=== PATIENT | male | born 1965 | race Caucasian/White ===

== ENCOUNTER 2021-02-19 12:58 | Inpatient (IN) ==
[2021-02-19] MEDS ORDERED: ONDANSETRON INJ 2 MG/ML 2 ML VIAL IV STA (14:20)
[2021-02-19] MEDS ORDERED: SODIUM CHLORIDE 0.9% 1000ML 1,000 ML IV ONE (14:20)
[2021-02-19] MEDS ORDERED: KETOROLAC TROMETHAMINE 15 MG/ML VIAL IV STA (14:20)
[2021-02-19 14:39] LABS: Appearance Urine Clear (Clear); Bilirubin Urine Negative (Negative); Blood Urine Negative (Negative); Color Urine Yellow; Glucose Urine UA Negative (Negative); Ketones Urine Trace (Negative); Leukocyte Esterase Urine Negative (Negative); Nitrite Urine Negative (Negative); Protein Urine Negative (Negative); Specific Gravity Urine 1.022 (1.000-1.030); Urobilinogen Urine Negative (Negative); pH Urine 6.5 (4.5-7.5)
[2021-02-19 14:50] LABS: Basophils # (auto) 0.01 K/uL (0-0.2); Basophils % (auto) 0.1 %; Eosinophils # (auto) 0.12 K/uL (0-0.5); Eosinophils % (auto) 1.3 %; Hematocrit (blood only) 42.5 % (42-52); Hemoglobin 14.3 g/dL (14.0-18.0); Immature Granulocytes # (auto) 0.02 K/uL (0.00-0.02); Immature Granulocytes % (auto) 0.2 %; Lymphocytes # (auto) 0.87 K/uL (1.2-3.4); Lymphocytes % (auto) 9.2 %; Mean Corpuscular Hemoglobin 31.1 pg (25-34); Mean Corpuscular Hgb Conc 33.6 g/dL (32-36); Mean Corpuscular Volume 92.4 fL (80-100); Mean Platelet Volume 9.3 fL (7.4-10.4); Monocytes # (auto) 0.91 K/uL (0.11-0.59); Monocytes % (auto) 9.7 %; Neutrophils # (auto) 7.49 K/uL (1.4-6.5); Neutrophils % (auto) 79.5 %; Platelet Count 283 K/uL (130-400); RDW Coefficient of Variation 13.3 % (11.5-14.5); RDW Standard Deviation 45.3 fL (36.4-46.3); White Blood Count 9.42 K/uL (4.8-10.8)
[2021-02-19 14:59] LABS: BUN Creatinine Ratio 16.4 (10-20); Calcium 8.9 mg/dl (8.5-10.1); Creatinine Clr Calc Pharmacy 75.4 ml/min; Est GFR (African American) 77.1 ml/min; Est GFR (Non-African American) 66.5 ml/min; Potassium 4.4 mmol/L (3.5-5.1)
--- NOTE | 2021-02-19 17:30 | History & Physical Report ---
Date of Service February 19, 2021 Assessment & Plan (1) 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: (2) Ureterolithiasis: Plan: This is a 55yo M with a PMH of HTN, dyslipidemia, depression GERD, tobacco use who presents with continued renal colic. Initially came to ED [address] abd/pelvis from 02/16/21 with mild hydronephrosis and hydroureter is seen on the right with obstructive 6 mm calculus within proximal aspect of the right ureter Discharge home, has not passed on its own, returns with continued pain UA unremarkable Repeat CT abd/pelvis Urology consult IV fluids, pain control, antiemetics, flomax (3) Acute kidney injury: Plan: Cr elevated to 1.21 (0.90 4 days ago) 2/2 ureterolithiasis with hydro Hold lisinopril, continue IV fluids, urology on board (4) HTN (hypertension): Plan: Hold lisinopril (5) BPH (benign prostatic hyperplasia): Plan: Follows with Dr. Helms. Continue alfuzosin (6) Depression: Plan: Continue venlafaxine (7) Tobacco use: Plan: Cessation recommended DVT Ppx:SCDs in setting of possible intervention Code status: FULL PCP: Ktah Dispo: Admitted to med/surg Patient seen in collaboration with Dr. Mueller. Please see addendum. History of Present Illness Primary Care Provider: Mary Stockton DO This is a 55yo M with a PMH of HTN, dyslipidemia, depression GERD, tobacco use who presents with continued renal colic. Initially came to ED [address] abd/pelvis from 02/16/21 with mild hydronephrosis and hydroureter is seen on the right with obstructive 6 mm calculus within proximal aspect of the right ureter, asymmetrical stranding of the right perinephric fat and delayed right nephrogram. Was discharged home with hope that he would pass stone but has continued to have persistent pain. Pain is described as colicky and intermittent, located right suprapubic area wrapping around to R flank and back. Endorses nausea but no vomiting. Has some burning with urination. No fever or chills. No lightheadedness, headache, chest pain, SOB, appetite changes, hematuria or diarrhea. Has been using oxycodone, Zofran and Flomax since discharge 4 days ago. Has not had a bowel movement since Saturday. Follows with Dr. Bernal for history of BPH. Allergies Allergy/AdvReac Type Severity Reaction Status Date / Time No Known Allergies Allergy Mild Unverified 02/16/21 00:27 Home Medications Medication Instructions Recorded Confirmed Type alfuzosin 10 mg tablet,extended 10 mg PO DAILY 02/16/21 02/19/21 History release 24 hr atorvastatin 20 mg tablet 20 mg PO HS 02/16/21 02/19/21 History fluticasone propionate 50 1 spray INTRANASAL DAILY 02/16/21 02/19/21 History mcg/actuation nasal spray,suspension lisinopril 30 mg tablet 30 mg PO QAM 02/16/21 02/19/21 History omeprazole 20 mg capsule,delayed 20 mg PO DAILY 02/16/21 02/19/21 History release ondansetron 4 mg disintegrating 4 mg PO Q6H PRN #14 tab 02/16/21 02/19/21 Rx tablet oxycodone 5 mg tablet 5 mg PO Q4H #15 tab 02/16/21 02/19/21 Rx venlafaxine 37.5 mg 75 mg PO QAM 02/16/21 02/19/21 History capsule,extended release 24 hr acetaminophen 325 mg tablet 650 mg PO QID PRN 02/19/21 02/19/21 History tamsulosin 0.4 mg capsule 0.4 mg PO QAM 02/19/21 02/19/21 History Past Med/Surg History Medical History BPH (benign prostatic hyperplasia) Depression Esophageal reflux (08/24/12) HTN (hypertension) Tobacco use Surgical History History of appendectomy History of colonoscopy Family History Other Heart disease Social History Smoking Status: Current every day smoker Tobacco Type: Smokeless Tobacco (Dip or Chew) Hx Alcohol Use: Yes Alcohol Intake Frequency: Monthly or Less Hx Substance Use: No Preferred Language: Romanian Feels Safe at Home: Yes Review of Systems Review of Systems: At least ten systems reviewed and negative except as noted in the HPI. Physical Exam Physical Exam: Please see Dr. Mueller's addendum for physical exam. Results & Data Results & Data ([facility]) Vital Signs (Past 12 Hours) Vital Signs Temp Pulse Pulse Resp BP Pulse Ox 02/19/21 15:30 51 L 17 139/85 96 02/19/21 15:15 54 L 18 152/90 H 96 02/19/21 15:00 62 15 139/91 95 02/19/21 14:21 54 L 18 97 02/19/21 14:20 52 L 17 99 02/19/21 13:45 36.8 C 61 18 166/91 H 94 Laboratory Results Short CBC 02/19/21 02/19/21 Range/Units 14:25 14:25 WBC 9.42 (4.8-10.8) K/uL Hgb 14.3 (14.0-18.0) g/dL Hct 42.5 (42-52) % Plt Count 283 (130-400) K/uL Creatinine 1.21 (0.6-1.4) mg/dl BMP 02/19/21 14:25 Sodium 136 Potassium 4.4 Chloride 101 Carbon Dioxide 29 BUN 20 H Creatinine 1.21 Glucose 89 Calcium 8.9 Urine 02/19/21 Range/Units 14:25 Urine Color Yellow Urine Appearance Clear (Clear) Urine pH 6.5 (4.5-7.5) Ur Specific [place] 1.022 (1.000-1.030) Urine Protein Negative (Negative) Urine Glucose (UA) Negative (Negative) Supervising Physician Co-Signing Physician Notes 55 male with PMH of HTN, HLD, depression, GERD, tobacco use presents with continued renal colic 02/19. Initially he presented to our ED [address] scan at that time revealed mild hydronephrosis and hydroureter on the right with 6 mm obstructing calculus; at which time patient decided to go home to let the stone pass on its own. But the pain did not resolve and patient is back. Continue pain management, nausea control, n.p.o. after midnight, urology consult, tamsulosin. Patient also complains of constipation, use laxatives and stool softener. Upon examination: GENERAL: Alert and oriented x3. NAD, on RA. HEENT: No pallor, no icterus. Pupils equal, round and reactive to light. Oral mucosa moist. NECK: No JVD, no neck masses. HEART: S1 and S2 heard. Regular rate and rhythm. No murmur, no gallop. RESPIRATORY SYSTEM: Normal AP diameter. No accessory muscle use. No wheezing, no crackles. ABDOMEN: Soft, bowel sounds present, nontender, no distention. CENTRAL NERVOUS SYSTEM: Alert and oriented x3. No facial droop. Speech is clear. Obeys simple commands. Moves extremities. EXTREMITIES: No edema, no erythema seen. I have seen and examined the patient and have discussed the case with the provider above. I agree with the assessment and plan as stated.
[2021-02-19] MEDS ORDERED: KETOROLAC TROMETHAMINE 15 MG/ML VIAL IV PRN (18:50)
--- NOTE | 2021-02-19 19:57 | XRay Report ---
KUB CLINICAL HISTORY: Right ureteral stone. FINDINGS: 2 AP supine abdominal radiographs are correlated with abdominal CT dated 02/16/2021. There i s a nonobstructed abdominal bowel gas pattern noting moderate colonic fecal retention. This largely o bscures the right renal shadow. A punctate nonobstructing calculus projects over the interpolar left kidney. No definite calcifications are seen projecting over the right kidney or along the course of u reters. Calcifications in the right hemipelvis likely represent phleboliths. The bony structures appe ar intact. IMPRESSION: 1. A punctate nonobstructing calculus projects over the interpolar left kidney. 2. The patient's right ureteral stone is not definitively visualized. The right renal shadow is large ly obscured by colonic contents. 3. Right pelvic basin calcifications likely represent phleboliths, although 1 of these representing a distal right ureteral stone is not entirely excluded. Electronically signed by: Johnny Winters M.D. 02/19/2021 7:55 PM
[2021-02-19] MEDS ORDERED: DOCUSATE SODIUM 100 MG CAP PO ONE (19:59)
[2021-02-19] MEDS ORDERED: DOCUSATE SODIUM 100 MG CAP PO PRN (19:59)
[2021-02-19] MEDS ORDERED: POLYETHYLENE (MIRALAX) 17 GM PACK PO ONE (19:59)
[2021-02-19] MEDS ORDERED: oxyCODONE HCL IR 5 MG TAB (IMMEDIATE RELEASE) PO PRN (19:59)
[2021-02-19] MEDS: SODIUM CHLORIDE 0.9% 1000ML 1,000 ML IV SCH (20:28)
[2021-02-19] MEDS: ATORVASTATIN 20 MG TAB PO SCH (20:51)
[2021-02-19] MEDS: VENLAFAXINE HCL XR 75 MG CAPXR PO SCH (20:52)
--- NOTE | 2021-02-19 21:59 | Emergency Department Note ---
History of Present Illness General Chief Complaint: Flank Pain Stated Complaint: FLANK PAIN Time Seen by Provider: 02/19/21 14:19 History of Present Illness Provider Complaint: flank pain Onset (ago): 4 day(s) Pain Consistency: constant Location: R flank Radiation: RLQ Severity: severe Maximum Pain Intensity: 10 Current Pain Intensity: 5 Quality: + stabbing Relieved By: + nothing Exacerbated By: + nothing Context: + history of similar episodes (Recently diagnosed with kidney stones) Associated Symptoms: + chills; no nausea, no vomiting, no diarrhea, no fever, no constipation, no dysuria, no hematemesis, no hematochezia, no melena, no hematuria, no anorexia, no syncope, no headache, no neck pain, no back pain, no chest pain, no weakness and no numbness Home Medications Medication Instructions Recorded Confirmed Type alfuzosin 10 mg tablet,extended 10 mg PO DAILY 02/16/21 02/19/21 History release 24 hr atorvastatin 20 mg tablet 20 mg PO HS 02/16/21 02/19/21 History fluticasone propionate 50 1 spray INTRANASAL DAILY 02/16/21 02/19/21 History mcg/actuation nasal spray,suspension lisinopril 30 mg tablet 30 mg PO QA 02/16/21 02/19/21 History omeprazole 20 mg capsule,delayed 20 mg PO DAILY 02/16/21 02/19/21 History release ondansetron 4 mg disintegrating 4 mg PO Q6H PRN #14 tab 02/16/21 02/19/21 Rx tablet venlafaxine 37.5 mg 75 mg PO QA 02/16/21 02/19/21 History capsule,extended release 24 hr acetaminophen 325 mg tablet 650 mg PO QID PRN 02/19/21 02/19/21 History oxycodone 5 mg tablet 5 mg PO Q4H PRN 02/19/21 02/19/21 History tamsulosin 0.4 mg capsule 0.4 mg PO QAM 02/19/21 02/19/21 History Allergies Allergy/AdvReac Type Severity Reaction Status Date / Time No Known Allergies Allergy Mild Unverified 02/16/21 00:27 Past Med/Surg History Medical History BPH (benign prostatic hyperplasia) Depression Esophageal reflux (08/24/12) HTN (hypertension) Tobacco use Surgical History History of appendectomy History of colonoscopy Family History Other Heart disease Social History Smoking Status: Current every day smoker Tobacco Type: Smokeless Tobacco (Dip or Chew) Hx Alcohol Use: Yes Alcohol Intake Frequency: Monthly or Less Hx Substance Use: No Preferred Language: Nepali Feels Safe at Home: Yes Review of Systems A total of 10 systems reviewed and were otherwise negative Physical Exam Vital Signs: Vital Signs - 24 hr 02/19/21 13:45 02/19/21 14:20 02/19/21 14:21 Temperature 36.8 C Temperature Source Temporal Artery Sc an Pulse Rate 61 52 L Pulse Rate [Left] 54 L Pulse Rate from Sp O2 Sensor Pulse Rhythm Regular Pulse Rhythm [Left ] Regular Pulse Strength [Le ft] Normal Respiratory Rate 18 17 18 Respiratory Effort / Characteristics Non-Labored Sponta neous Non-Labored Respiratory Depth Normal Normal Respiratory Patter n Regular Regular Blood Pressure 166/91 H Blood Pressure Laya n 116 Blood Pressure Pos ition Sitting Pulse Oximetry 94 99 97 Oxygen Delivery Me thod Room Air Room Air Room Air Sepsis Recent Feve r Within 48 Hours No Sepsis New/Unexpla ined Change in Men [place] Status N/A Sepsis Action Take n by Nursing No Action Required 02/19/21 15:00 02/19/21 15:15 02/19/21 15:30 Temperature Temperature Source Pulse Rate 62 54 L 51 L Pulse Rate [Left] Pulse Rate from Sp O2 Sensor 60 55 L 50 L Pulse Rhythm Pulse Rhythm [Left ] Pulse Strength [Le ft] Respiratory Rate 15 18 17 Respiratory Effort / Characteristics Respiratory Depth Respiratory Patter n Blood Pressure 139/91 152/90 H 139/85 Blood Pressure Laya n 107 110 103 Blood Pressure Pos ition Pulse Oximetry 95 96 96 Oxygen Delivery Me thod Room Air Room Air Room Air Sepsis Recent Feve r Within 48 Hours Sepsis New/Unexpla ined Change in Men [place] Status Sepsis Action Take n by Nursing 02/19/21 15:45 02/19/21 16:00 02/19/21 16:15 Temperature Temperature Source Pulse Rate 51 L 52 L 54 L Pulse Rate [Left] Pulse Rate from Sp O2 Sensor 50 L 51 L 53 L Pulse Rhythm Pulse Rhythm [Left ] Pulse Strength [Le ft] Respiratory Rate 14 15 17 Respiratory Effort / Characteristics Respiratory Depth Respiratory Patter n Blood Pressure 151/87 H 142/90 H 155/96 H Blood Pressure Laya n 108 107 115 Blood Pressure Pos ition Pulse Oximetry 96 94 95 Oxygen Delivery Me thod Sepsis Recent Feve r Within 48 Hours Sepsis New/Unexpla ined Change in Men aur[place] Status Sepsis Action Take n by Nursing 02/19/21 16:30 02/19/21 17:00 Temperature Temperature Source Pulse Rate 54 L 52 L Pulse Rate [Left] Pulse Rate from Sp O2 Sensor 54 L 52 L Pulse Rhythm Pulse Rhythm [Left ] Pulse Strength [Le ft] Respiratory Rate 22 17 Respiratory Effort / Characteristics Respiratory Depth Respiratory Patter n Blood Pressure 157/92 H 139/85 Blood Pressure Laya n 113 103 Blood Pressure Pos ition Pulse Oximetry 96 95 Oxygen Delivery Me thod Sepsis Recent Feve r Within 48 Hours Sepsis New/Unexpla ined Change in Men [place] Status Sepsis Action Take n by Nursing Physical Exam: Physical Exam GENERAL: He is oriented to person, place, and time. He appears well-developed and well-nourished. He does not appear distressed. HENT: Exam performed. - Head: Normocephalic and atraumatic. - Right Ear: External ear normal. No mastoid tenderness. - Left Ear: External ear normal. No mastoid tenderness. - Mouth/Throat: The oropharynx is clear and moist. No trismus in the jaw. No dental abscesses or uvula swelling. No oropharyngeal exudate or tonsillar absces ses. EYES: Conjunctivae and EOM are normal. Pupils are equal, round, and reactive to light. Right eye exhibits no discharge. Left eye exhibits no discharge. No scleral icterus. NECK: Normal range of motion. Neck supple. No JVD present. No spinous process tenderness present. No carotid bruit present. No rigidity. No tracheal deviation and normal range of motion present. No Brudzinski's sign and no Kernig's sign noted. CV: Normal rate, regular rhythm, normal heart sounds and intact distal pulses. There is no peripheral edema. Palpable radial pulses bue. PULM/CHEST: Effort normal and breath sounds normal. No respiratory distress. No stridor. He has no wheezes. He has no rales. - Chest Wall: He exhibits no tenderness. ABD: The abdomen is soft. Bowel sounds are normal. He has no distension. No mass is present. There is no tenderness. There is no rebound, no guarding, no Conner's sign and no tenderness at McBurney's point. Rovsig negative. Right- sided CVA tenderness. MUSC/SKEL: Normal range of motion. There is no peripheral edema, tenderness or deformity. LYMPH: No cervical adenopathy. NEURO: He is alert and oriented to person, place, and time. He has normal strength. No cranial nerve deficit or sensory deficit. Coordination and gait normal. GCS eye subscore is 4. GCS verbal subscore is 5. GCS motor subscore is 6. Cerebellar tests wnl. SKIN: Skin is warm and dry. He is not diaphoretic. PSYCH: He has a normal mood and affect. Behavior is normal. Judgment and thought content normal. Course Course 141: The patient was evaluated in room C12. A complete history and physical exam was performed Cardiac monitoring: An order was placed for continuous cardiac monitoring. The monitor shows a rate of 70 with sinus rhythm EMR reviewed. Patient was seen in the emergency department on February 15. At that time he was diagnosed with a 6 mm kidney stone. Patient was discharged with analgesia. 1730:Vital signs stable. Labs within normal limits. Patient be admitted to the [facility] medical team for pain control and urology evaluation. With Joaquina Guerrero who stated to admit to Dr. Mueller Administered Medications Atorvastatin Calcium (Atorvastatin 20 Mg Tab) 20 mg PO HS TIKI Stop: 03/21/21 20:59 Last Admin: 02/19/21 20:51 Dose: 20 mg Documented by: [id number] Sodium Chloride (Nss 1000ml) 1,000 mls @ 125 mls/hr IV .Q8H TIKI Stop: 03/21/21 19:58 Last Admin: 02/19/21 20:28 Dose: 125 mls/hr Documented by: [id number] Ketorolac Tromethamine (Ketorolac Tromethamine 15 Mg/Ml Vial) 15 mg IV Q6H PRN PRN Reason: Pain Stop: 02/20/21 00:01 Last Admin: 02/19/21 20:51 Dose: 15 mg Documented by: [id number] Venlafaxine HCl (Venlafaxine Hcl Xr 75 Mg Capxr) 75 mg PO QAM TIKI Stop: 03/22/21 08:59 Last Admin: 02/19/21 20:52 Dose: 75 mg Documented by: [id number] Discontinued Medications Docusate Sodium (Docusate Sodium 100 Mg Cap) 100 mg PO NOW ONE Stop: 02/19/21 20:00 Last Admin: 02/19/21 20:51 Dose: 100 mg Documented by: [id number] Sodium Chloride (Nss 1000ml) 1,000 mls @ 999 mls/hr IV .Q1H1M ONE Stop: 02/19/21 15:20 Last Infusion: 02/19/21 16:07 Dose: 0 mls/hr Documented by: [id number] Admin: 02/19/21 14:55 Dose: 999 mls/hr Documented by: [id number] Ketorolac Tromethamine (Ketorolac Tromethamine 15 Mg/Ml Vial) 15 mg IV NOW STA Stop: 02/19/21 14:21 Last Admin: 02/19/21 14:51 Dose: 15 mg Documented by: [id number] Ondansetron HCl (Ondansetron Inj 2 Mg/Ml 2 Ml Vial) 4 mg IV NOW STA Stop: 02/19/21 14:21 Last Admin: 02/19/21 14:51 Dose: 4 mg Documented by: [id number] Polyethylene Glycol (Polyethylene (Miralax) 17 Gm Pack) 17 gm PO ONE ONE Stop: 02/19/21 20:00 Last Admin: 02/19/21 20:52 Dose: 17 gm Documented by: [id number] Medical Decision Making Laboratory Data Result diagrams: 02/19/21 14:25 02/19/21 14:25 Lab Results 02/19/21 02/19/21 02/19/21 Range/Units 14:25 14:25 14:25 WBC 9.42 (4.8-10.8) K/uL RBC 4.60 L (4.7-6.1) M/uL Hgb 14.3 (14.0-18.0) g/dL Hct 42.5 (42-52) % MCV 92.4 (80-100) fL MCH 31.1 (25-34) pg MCHC 33.6 (32-36) g/dL RDW Std Deviation 45.3 (36.4-46.3) fL RDW Coeff of [place] 13.3 (11.5-14.5) % Plt Count 283 (130-400) K/uL MPV 9.3 (7.4-10.4) fL Immature Gran % (Auto) 0.2 % Neut % (Auto) 79.5 % Lymph % (Auto) 9.2 % [place] % (Auto) 9.7 % Eos % (Auto) 1.3 % Baso % (Auto) 0.1 % Neut # (Auto) 7.49 H (1.4-6.5) K/uL Lymph # (Auto) 0.87 L (1.2-3.4) K/uL [place] # (Auto) 0.91 H (0.11-0.59) K/uL Eos # (Auto) 0.12 (0-0.5) K/uL Baso # (Auto) 0.01 (0-0.2) K/uL Immature Gran # (Auto) 0.02 (0.00-0.02) K/uL Sodium 136 (136-145) mmol/L Potassium 4.4 (3.5-5.1) mmol/L Chloride 101 (98-107) mmol/L Carbon Dioxide 29 (21-32) mmol/L Anion Gap 6.0 (3-11) BUN 20 H (7-18) mg/dl Creatinine 1.21 (0.6-1.4) mg/dl Est Cr Clr Drug Dosing 75.4 ml/min Est GFR ( Amer) 77.1 ml/min Est GFR (Non-Af Amer) 66.5 ml/min BUN/Creatinine Ratio 16.4 (10-20) Glucose 89 (70-99) mg/dl Lactate (0.4-2.0) mmol/L Calcium 8.9 (8.5-10.1) mg/dl Urine Color Yellow Urine Appearance Clear (Clear) Urine pH 6.5 (4.5-7.5) Ur Specific [place] 1.022 (1.000-1.030) Urine Protein Negative (Negative) Urine Glucose (UA) Negative (Negative) Urine Ketones Trace H (Negative) Urine Blood Negative (Negative) Urine Nitrite Negative (Negative) Urine Bilirubin Negative (Negative) Urine Urobilinogen Negative (Negative) Ur Leukocyte Esterase Negative (Negative) COVID-19 Eval Order SARS-CoV-2 (PCR) (Negative) 09/26/21 09/26/21 09/26/21 Range/Units 14:30 14:55 14:55 WBC (4.8-10.8) K/uL RBC (4.7-6.1) M/uL Hgb (14.0-18.0) g/dL Hct (42-52) % MCV (80-100) fL MCH (25-34) pg MCHC (32-36) g/dL RDW Std Deviation (36.4-46.3) fL RDW Coeff of [place] (11.5-14.5) % Plt Count (130-400) K/uL MPV (7.4-10.4) fL Immature Gran % (Auto) % Neut % (Auto) % Lymph % (Auto) % [place] % (Auto) % Eos % (Auto) % Baso % (Auto) % Neut # (Auto) (1.4-6.5) K/uL Lymph # (Auto) (1.2-3.4) K/uL [place] # (Auto) (0.11-0.59) K/uL Eos # (Auto) (0-0.5) K/uL Baso # (Auto) (0-0.2) K/uL Immature Gran # (Auto) (0.00-0.02) K/uL Sodium (136-145) mmol/L Potassium (3.5-5.1) mmol/L Chloride (98-107) mmol/L Carbon Dioxide (21-32) mmol/L Anion Gap (3-11) BUN (7-18) mg/dl Creatinine (0.6-1.4) mg/dl Est Cr Clr Drug Dosing ml/min Est GFR ( Amer) ml/min Est GFR (Non-Af Amer) ml/min BUN/Creatinine Ratio (10-20) Glucose (70-99) mg/dl Lactate 0.8 (0.4-2.0) mmol/L Calcium (8.5-10.1) mg/dl Urine Color Urine Appearance (Clear) Urine pH (4.5-7.5) Ur Specific [place] (1.000-1.030) Urine Protein (Negative) Urine Glucose (UA) (Negative) Urine Ketones (Negative) Urine Blood (Negative) Urine Nitrite (Negative) Urine Bilirubin (Negative) Urine Urobilinogen (Negative) Ur Leukocyte Esterase (Negative) COVID-19 Eval Order Covid19 at [facility] SARS-CoV-2 (PCR) NEGATIVE (Negative) MDM Narrative 1419: The patient was evaluated in room C12. A complete history and physical exam was performed Cardiac monitoring: An order was placed for continuous cardiac monitoring. The monitor shows a rate of 70 with sinus rhythm EMR reviewed. Patient was seen in the emergency department on February 15, 2021. At that time he was diagnosed with a 6 mm kidney stone. Patient was discharged with analgesia. 1730:Vital signs stable. Labs within normal limits. Patient be admitted to the [facility] medical team for pain control and urology evaluation. With Joaquina Guerrero who stated to admit to Dr. Mueller Impression & Plan 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 Discharge Plan Visit Data Chief Complaint: Flank Pain Stated Complaint: FLANK PAIN Discharge Problem: 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 Patient Disposition: Admitted As Inpatient Discharge Instructions Interventions: ED Discharge Assessment Last Done: 02/19/21 19:28
[2021-02-20] MEDS: SODIUM CHLORIDE 0.9% 1000ML 1,000 ML IV SCH ×3 (04:09→20:03)
[2021-02-20 07:52] LABS: Hematocrit (blood only) 37.4 % (42-52); Hemoglobin 12.3 g/dL (14.0-18.0); Mean Corpuscular Hemoglobin 30.5 pg (25-34); Mean Corpuscular Hgb Conc 32.9 g/dL (32-36); Mean Corpuscular Volume 92.8 fL (80-100); Mean Platelet Volume 9.6 fL (7.4-10.4); Platelet Count 257 K/uL (130-400); RDW Coefficient of Variation 13.2 % (11.5-14.5); RDW Standard Deviation 45.2 fL (36.4-46.3); Red Blood Count 4.03 M/uL (4.7-6.1); White Blood Count 5.62 K/uL (4.8-10.8)
[2021-02-20] MEDS: ALFUZOSIN HCL 10 MG TAB PO SCH ×2 (08:09→08:13)
[2021-02-20] MEDS: TAMSULOSIN HCL 0.4 MG CAP PO SCH (08:09)
[2021-02-20] MEDS: PANTOprazole 40 MG TAB PO SCH (08:09)
[2021-02-20] MEDS: FLUTICASONE PROPIONATE NA SPR 16 GM BTL NAE SCH (08:10)
[2021-02-20] MEDS: ONDANSETRON INJ 2 MG/ML 2 ML VIAL IV PRN (08:12)
[2021-02-20 08:25] LABS: BUN Creatinine Ratio 16.4 (10-20); Calcium 8.5 mg/dl (8.5-10.1); Creatinine Clr Calc Pharmacy 63.3 ml/min; Est GFR (Non-African American) 53.5 ml/min; Potassium 4.7 mmol/L (3.5-5.1)
--- NOTE | 2021-02-20 08:31 | Urology Consultation ---
Date of Consultation February 20, 2021 Assessment & Plan (1) 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: (2) Acute right flank pain: 55yo M admitted with intractable right flank pain secondary to a 6mm right UPJ stone with hydronephrosis - Afebrile, non-toxic appearing. - Labs reviewed - Wbc stable and creatinine up to 1.45 today. - Voiding spontaneously without difficulty - Urinalysis on admission not suggestive of infection - Keep NPO for now - Will check a renal ultrasound now to assess for improved vs. worsening hydronephrosis and visualization of right UPJ stone - Additional recommendations pending imaging results - Continue supportive care and pain management - Will continue to follow - Plan of care and renal ultrasound imaging reviewed with Dr. Olson, on-call urologist - Renal ultrasound noted mild to moderate right hydroureteronephrosis, the stone itself was not visualized by ultrasound. - No acute intervention planned for today - Will allow more time for spontaneous passage given the stone has likely moved into the ureter - Continue supportive care, hydration, and pain control - Strain all urine - KUB in the AM. - Will make NPO at midnight and reassess in the morning - Will continue to follow - Please consult our service urgently if patient develops fever >101F, intractable pain or nausea, as this will necessitate urgent surgical intervention. History of Present Illness Reason for Consultation: Ureteral stone with hydro Attending Physician: Andrea José MD History of Present Illness 55yo M admitted with intractable right flank pain secondary to a 6mm right UPJ stone with hydronephrosis PMHx includes BPH, HTN, Depression, Esophageal reflux Patient follows with Dr. Bernal with [facility] Denies prior hx of stones Patient initially presented to [facility] ED on 02/16 with c/o right flank pain with associated nausea. CT abdomen pelvis noted mild hydronephrosis and hydroureter on the right with obstructive 6 mm calculus within proximal aspect of the right ureter, asymmetrical stranding of the right perinephric fat and delayed right nephrogram. As he was stable, he was discharged home for outpatient management and trial of passage with pain control, antiemetics, and flomax. He then presented again to the ED on 02/19 with worsening right flank pain and nausea. On presentation, he was afebrile, Wbc 9.42, Hgb 12.3, Cr 1.21. He was admitted for pain control and management. CTAP . Mild hydronephrosis and hydroureter is seen on the right with obstructive 6 mm calculus within proximal aspect of the right ureter, asymmetrical stranding of the right perinephric fat and delayed right nephrogram. 2. Hepatic steatosis. 3. Mild diverticulosis of sigmoid colon without diverticulitis. 4. The rest of findings as above. KUB . A punctate nonobstructing calculus projects over the interpolar left kidney. 2. The patient's right ureteral stone is not definitively visualized. The right renal shadow is largely obscured by colonic contents. 3. Right pelvic basin calcifications likely represent phleboliths, although 1 of these representing a distal right ureteral stone is not entirely excluded. Patient was examined at bedside this AM. Awake, resting comfortably in bed this morning. He denies any stone passage overnight. He has been straining his urine. At present, he reports intermittent right flank pain which radiates to the right groin. Reports pain as 5/10. Some nausea, no vomiting. He denies fever or chills. Voiding without difficulty. No hematuria or dysuria. Feels he is emptying his bladder well. Continues on flomax. Has been NPO. Offers no additional complaints at this time Allergies Allergy/AdvReac Type Severity Reaction Status Date / Time No Known Allergies Allergy Mild Unverified 02/16/21 00:27 Home Medications Medication Instructions Recorded Confirmed Type alfuzosin 10 mg tablet,extended 10 mg PO DAILY 02/16/21 02/19/21 History release 24 hr atorvastatin 20 mg tablet 20 mg PO HS 02/16/21 02/19/21 History fluticasone propionate 50 1 spray INTRANASAL DAILY 02/16/21 02/19/21 History mcg/actuation nasal spray,suspension lisinopril 30 mg tablet 30 mg PO QAM 02/16/21 02/19/21 History omeprazole 20 mg capsule,delayed 20 mg PO DAILY 02/16/21 02/19/21 History release ondansetron 4 mg disintegrating 4 mg PO Q6H PRN #14 tab 02/16/21 02/19/21 Rx tablet venlafaxine 37.5 mg 75 mg PO QAM 02/16/21 02/19/21 History capsule,extended release 24 hr acetaminophen 325 mg tablet 650 mg PO QID PRN 02/19/21 02/19/21 History oxycodone 5 mg tablet 5 mg PO Q4H PRN 02/19/21 02/19/21 History tamsulosin 0.4 mg capsule 0.4 mg PO QAM 02/19/21 02/19/21 History Patient History Medical History BPH (benign prostatic hyperplasia) Depression Esophageal reflux (08/24/12) HTN (hypertension) Tobacco use Surgical History History of appendectomy History of colonoscopy Family History Other Heart disease Social History Smoking Status: Never smoker Tobacco Type: Smokeless Tobacco (Dip or Chew) Do You Dip or Chew Tobacco: Yes; Tobacco Cessation Education Requested by Patient: No Hx Alcohol Use: No Hx Substance Use: No Preferred Language: Citizen Of [place] Communication Ability: Effective 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 Beliefs That Will Affect Care: None Current Living Situation: Spouse Other Information That Helps Us Care for You: No Feels Safe at Home: Yes Safety Concerns: Feels Safe At This Time Assistive Devices: None Assistive Devices Comment: reading glasses Review of Systems Review of Systems: All systems reviewed & are unremarkable except as noted in HPI & below Physical Exam Constitutional: well developed and well nourished; no acute distress and not ill appearing Respiratory: normal respiratory effort and able to speak in complete sentences; no labored breathing and no audible wheezes Gastrointestinal (Abdomen): Inspection/Auscultation: abdomen normal to inspection; abdomen not distended Percussion/Palpation: + abdomen tender (mild right flank and suprapubic tenderness with palpation) and abdomen soft; no guarding and abdomen not rigid Musculoskeletal: Head/Neck/Chest: normocephalic Skin: No visible rashes or lesions to exposed skin areas Neurologic: moves all extremities and awake Psychiatric: Orientation: alert, oriented x 3 and cooperative Results & Data ([place]) Vital Signs (Past 12 Hours) Vital Signs Temp Pulse Resp BP Pulse Ox 02/20/21 07:12 36.9 C 79 16 142/87 H 97 02/19/21 20:50 37.0 C 54 L 14 173/99 H 98 PG Care Time/CCT Total # of Minutes Spent Total Time Spent with Patient: Total time spent is greater than 50% in coordination of care (as documented) at patient's floor/unit and/or counseling patient: Coding Level of Care Code 84578 Inpt Consult Level 3 Diagnoses 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 N13.1 Acute right flank pain R10.9
[2021-02-20] MEDS: VENLAFAXINE HCL XR 75 MG CAPXR PO SCH (09:13)
--- NOTE | 2021-02-20 10:28 | Ultrasound Report ---
ULTRASOUND KIDNEYS AND BLADDER CLINICAL HISTORY: Right ureteral stone. COMPARISON STUDY: Abdominal CT dated 02/16/2021 TECHNIQUE: Real-time, grayscale, and color flow sonography of the kidneys and bladder is performed. I mages are reviewed in the transverse and longitudinal planes. FINDINGS: Kidneys: The kidneys are normal in size and echotexture. The right kidney measures 12.0 x 6.7 x 6.8 c m and the left kidney measures 11.9 x 6.0 x 6.2 cm. There is mild to moderate right-sided hydroureter onephrosis. No hydronephrosis is seen on the left. A nonobstructing calculus is noted in the left kid chanel. There is no sonographic evidence of contour deforming renal mass lesion. No perinephric fluid is identified. Bladder: The prostate gland is mildly enlarged and heterogeneous noting median lobe hypertrophy. The bladder is partially distended. The wall appears thickened and trabeculated indicating chronic outlet obstruction. Only the left ureteral jet was seen. Upper abdomen: Survey images of the liver show evidence of steatosis. IMPRESSION: 1. There is mild to moderate right hydroureteronephrosis, and a right ureteral jet was not visualized . These findings correspond to the known history of a right ureteral calculus. The stone itself was n ot visualized by ultrasound. 2. There is a nonobstructing left renal calculus. No left-sided hydronephrosis is seen. 3. Prostatomegaly with evidence of chronic bladder outlet obstruction. 4. Hepatic steatosis. ACT 112: Negative or not required by law. Electronically signed by: Johnny Winters M.D. 02/20/2021 10:26 AM
[2021-02-20] MEDS ORDERED: POLYETHYLENE (MIRALAX) 17 GM PACK PO PRN (10:59)
--- NOTE | 2021-02-20 12:50 | Hospitalist Progress Note ---
Date of Service February 20, 2021 Assessment & Plan (1) 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: (2) Ureterolithiasis: Plan: -Initially presented to ED on 02/[address] ABD/pelvis showed mild hydronephrosis and hydroureter is seen on the right with obstructive 6 mm calculus within proximal aspect of the right ureter. Patient was discharged home however return to ED on 02/19 due to increased pain. -UA unremarkable -Renal ultra sound 02/20 -mild to moderate right hydroureteronephrosis however stone was not visualized -Evaluated by urology, not planning on surgical intervention at this time. Continue Flomax, IVF -Given increased creatinine, will observe overnight. N.p.o. after midnight. -DC ketorolac due to increased creatinine -Pain currently well controlled with oxycodone (3) Acute kidney injury: Plan: -Creatinine 0.95 -> 1.2 -> 1.4 -Likely due to ureterolithiasis with hydroureteronephrosis -Continue to hold lisinopril. Ketorolac DC'd. -IVF, trend renal functions (4) HTN (hypertension): Plan: -Holding lisinopril as above (5) BPH (benign prostatic hyperplasia): Plan: -Continue alfuzosin -Follows with Dr. Scooter Bernal as an outpatient (6) Depression: Plan: -Continue venlafaxine (7) Tobacco use: Plan: -Cessation recommended (8) DVT prophylaxis: Plan: -SCDs, ambulate Admission and Anticipated Discharge Date Admission Date: February 19, 2021 Supervising Physician Co-Signing Physician Notes Patient is seen and examined at bedside. Right flank, groin pain much improved. Denies dysuria, hematuria. Also denies chest pain, dyspnea. On exam patient is moderately built and nourished, no apparent distress, normocephalic atraumatic, EOMI, normal breath sounds, clear to auscultation, S1-S2, no murmur, no pedal edema, abdomen soft, nontender, normal bowel sounds, alert, awake, oriented, grossly no focal deficits. Obstructive uropathy Renal calculus Continue IV fluids, Flomax Pain control Avoid NSAIDs given JORDAN Appreciate urology input KUB in the morning Hypertension Lisinopril on hold due to JORDAN We will give a dose of amlodipine for blood pressure control I personally reviewed the record. Patient is interviewed and examined at bedside. Patient's care is coordinated with Nadiya Andrea MUTUEL CASHIER. Please refer to the documentation above for details of patient's presentation and for discussion of other issues. Subjective Patient seen and examined. Resting in bed, reports pain is much improved. When having pain, reports pain is located in the right lower back and radiates around to the right groin. Has not passed stone yet. Denies dysuria and hematuria. Has some mild nausea this morning however no vomiting. Denies chest pain or shortness of breath. No lightheadedness or dizziness. Physical Exam Constitutional: WD/WN, vitals as above Respiratory: normal respiratory effort, lungs clear to auscultation Cardiovascular: Rate/Rhythm: regular rate and regular rhythm Vessels: normal peripheral pulses Extremities: no edema Gastrointestinal (Abdomen): normal bowel sounds, soft, nontender, no hepatosplenomegaly Skin: no rashes, warm and dry Neurologic: no focal motor deficits Psychiatric: A+Ox3, euthymic affect Genitourinary: no CVA tenderness Results & Data Results & Data ([facility]) Vital Signs (Past 12 Hours) Vital Signs Temp Pulse Resp BP Pulse Ox 02/20/21 07:12 36.9 C 79 16 142/87 H 97 Laboratory Results Short CBC 02/19/21 02/20/21 Range/Units 14:25 06:37 WBC 9.42 5.62 (4.8-10.8) K/uL Hgb 14.3 12.3 L (14.0-18.0) g/dL Hct 42.5 37.4 L (42-52) % Plt Count 283 257 (130-400) K/uL BMP 02/19/21 02/20/21 14:25 06:37 Sodium 136 138 Potassium 4.4 4.7 Chloride 101 108 H Carbon Dioxide 29 25 BUN 20 H 24 H Creatinine 1.21 1.45 H Glucose 89 90 Calcium 8.9 8.5 Urine 02/19/21 Range/Units 14:25 Urine Color Yellow Urine Appearance Clear (Clear) Urine pH 6.5 (4.5-7.5) Ur Specific [place] 1.022 (1.000-1.030) Urine Protein Negative (Negative) Urine Glucose (UA) Negative (Negative) Diagnostic Findings RENAL US IMPRESSION: 1. There is mild to moderate right hydroureteronephrosis, and a right ureteral jet was not visualized. These findings correspond to the known history of a right ureteral calculus. The stone itself was not visualized by ultrasound. 2. There is a nonobstructing left renal calculus. No left-sided hydronephrosis is seen. 3. Prostatomegaly with evidence of chronic bladder outlet obstruction. 4. Hepatic steatosis.
[2021-02-20] MEDS ORDERED: amLODIPine BESYLATE 5 MG TAB PO ONE (17:07)
[2021-02-20] MEDS: ATORVASTATIN 20 MG TAB PO SCH (19:57)
[2021-02-20] MEDS ORDERED: LACTULOSE SYRUP 30 GM/45 ML UDP PO STA ×2 (20:31→21:29)
[2021-02-20] MEDS: DOCUSATE SODIUM/SENNA 50/8.6MG TAB PO SCH (21:41)
[2021-02-21] MEDS: SODIUM CHLORIDE 0.9% 1000ML 1,000 ML IV SCH ×3 (03:44→19:47)
[2021-02-21 06:33] LABS: Hematocrit (blood only) 37.6 % (42-52); Hemoglobin 12.4 g/dL (14.0-18.0); Mean Corpuscular Hemoglobin 30.2 pg (25-34); Mean Corpuscular Volume 91.7 fL (80-100); Mean Platelet Volume 9.2 fL (7.4-10.4); Platelet Count 250 K/uL (130-400); RDW Coefficient of Variation 13.2 % (11.5-14.5); White Blood Count 6.28 K/uL (4.8-10.8)
[2021-02-21 07:09] LABS: Calcium 8.2 mg/dl (8.5-10.1); Creatinine Clr Calc Pharmacy 59.9 ml/min; Est GFR (African American) 58.1 ml/min; Est GFR (Non-African American) 50.1 ml/min; Potassium 4.2 mmol/L (3.5-5.1)
[2021-02-21] MEDS: ALFUZOSIN HCL 10 MG TAB PO SCH (07:51)
[2021-02-21] MEDS: DOCUSATE SODIUM/SENNA 50/8.6MG TAB PO SCH ×2 (07:51→20:11)
[2021-02-21] MEDS: FLUTICASONE PROPIONATE NA SPR 16 GM BTL NAE SCH (07:51)
[2021-02-21] MEDS: TAMSULOSIN HCL 0.4 MG CAP PO SCH (07:51)
[2021-02-21] MEDS: VENLAFAXINE HCL XR 75 MG CAPXR PO SCH (07:51)
[2021-02-21] MEDS: PANTOprazole 40 MG TAB PO SCH (07:51)
[2021-02-21] MEDS: ONDANSETRON INJ 2 MG/ML 2 ML VIAL IV PRN (07:57)
--- NOTE | 2021-02-21 09:41 | XRay Report ---
KUB HISTORY: f/u renal calculi COMPARISON: KUB 02/19/2021. FINDINGS: The bowel gas pattern is unremarkable. There are no dilated loops of small bowel to suggest an obstruction. There is an 8 mm stone projecting over the right mid ureter which overlies the righ t L4 transverse process. This demonstrates mild distal migration compared to the prior CT examination . Calcifications within the right deep pelvis are consistent with phleboliths. No left ureteral calcu li. No additional right renal calculi. There are 2 punctate adjacent stones within the interpolar reg ion of the left kidney. No pneumoperitoneum or pneumatosis. IMPRESSION: 1. An 8 mm mid right ureteral stone. 2. Stable left-sided nephrolithiasis. ACT 112: Negative or not required by law. Electronically signed by: Isiah Caban M.D. 02/21/2021 9:39 AM
--- NOTE | 2021-02-21 09:53 | Urology Progress Note ---
Date of Service February 21, 2021 Assessment & Plan (1) 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: (2) Acute right flank pain: (3) Acute kidney injury: Plan: 55yo M admitted with intractable right flank pain secondary to a 6mm right UPJ stone with hydronephrosis - Patient feeling well this morning, minimal pain at present. - No stone passage noted overnight. - KUB this morning noted an 8 mm mid right ureteral stone. - Remains afebrile, non-toxic appearing. - Labs reviewed, Wbc stable and creatinine up to 1.53. - Voiding spontaneously without difficulty. - Discussed options for acute stone management with cystoscopy, stent placement, and possible stone treatment. - Discussed outpatient options for conservative measures with max expulsion medical therapy. - Discussed possible outpatient ESWL. - Risks/benefits of all procedures discussed. - Patient prefers to proceed with cystoscopy, stent placement and possible stone treatment tomorrow with Dr. Vivar presuming he remains afebrile and no acute clinical changes. - No acute intervention planned for today. - Ok to have a diet back today. - Will make NPO at midnight for procedure on 02/22. - Continue to strain all urine. - Will continue to follow. Admission and Anticipated Discharge Date Admission Date: February 19, 2021 Supervising Physician Co-Signing Physician Notes Discussed patient and plan with [facility]. Agree with above. Subjective Pt examined at bedside this AM. Awake, resting in bed on arrival. He denies any stone passage overnight. Minimal pain overnight, still with occasional right flank/back discomfort. No fevers or chills. Denies nausea or vomiting. Voiding without difficulty. No hematuria or dysuria. Has been NPO overnight. Review of Systems Constitutional: as per Subjective / HPI Gastrointestinal: as per Subjective / HPI Genitourinary: + as per Subjective / HPI Physical Exam Constitutional: well developed and well nourished; no acute distress and not ill appearing Respiratory: normal respiratory effort and able to speak in complete sentences; no labored breathing and no audible wheezes Gastrointestinal (Abdomen): Inspection/Auscultation: abdomen normal to inspect ion; abdomen not distended Percussion/Palpation: + abdomen tender (mild right flank and suprapubic tenderness with palpation) and abdomen soft; no guarding and abdomen not rigid Musculoskeletal: Head/Neck/Chest: normocephalic Skin: No visible rashes or lesions to exposed skin areas Neurologic: moves all extremities and awake Psychiatric: Orientation: alert, oriented x 3 and cooperative Results & Data ([facility]) Vital Signs (Past 12 Hours) Vital Signs Temp Pulse Resp BP BP Pulse Ox 02/21/21 07:39 37 C 54 L 16 150/84 H 96 02/20/21 23:14 36.7 C 57 L 16 158/91 H 96 PG Care Time/CCT Total # of Minutes Spent Total Time Spent with Patient: Total time spent is greater than 50% in coordination of care (as documented) at patient's floor/unit and/or counseling patient: Coding Level of Care Code 01430 Subseq Hosp Care Lvl 2 Diagnoses 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 N13.1 Acute right flank pain R10.9 Acute kidney injury N17.9
[2021-02-21] MEDS ORDERED: amLODIPine BESYLATE 5 MG TAB PO ONE (11:53)
--- NOTE | 2021-02-21 11:53 | Hospitalist Progress Note ---
Date of Service February 21, 2021 Assessment & Plan (1) 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: (2) Ureterolithiasis: Plan: -Initially presented to ED on 02/[address] ABD/pelvis showed mild hydronephrosis and hydroureter is seen on the right with obstructive 6 mm calculus within proximal aspect of the right ureter. Patient was discharged home however return to ED on 02/19 due to increased pain. -UA unremarkable -Renal ultra sound 02/20 -mild to moderate right hydroureteronephrosis however stone was not visualized -KUB today shows 8 mm right mid ureteral stone -Evaluated by urology on 02/20 who did not recommend surgical intervention at that time, however due to worsening renal function today, surgical intervention is advised. -Planning on ureteroscopy, stone treatment, and stent placement tomorrow -Continue Flomax, IVF -Would avoid ketorolac due to increased creatinine -Pain currently well controlled with oxycodone (3) Acute kidney injury: Plan: -Creatinine 0.95 -> 1.2 -> 1.4 -> 1.5 -Likely due to ureterolithiasis with hydroureteronephrosis -Continue to hold lisinopril. Ketorolac DC'd. -IVF, trend renal functions (4) HTN (hypertension): Plan: -Holding lisinopril as above -BP somewhat elevated, will start amlodipine 5 mg daily (5) BPH (benign prostatic hyperplasia): Plan: -Continue alfuzosin -Follows with Dr. Scooter Bernal as an outpatient (6) Depression: Plan: -Continue venlafaxine (7) Tobacco use: Plan: -Cessation recommended (8) DVT prophylaxis: Plan: -SCDs, ambulate Admission and Anticipated Discharge Date Admission Date: February 19, 2021 Supervising Physician Co-Signing Physician Notes Patient is seen and examined at bedside. States feeling well. Right flank, groin pain only minimal. Voiding urine. Denies dysuria, hematuria, chest pain, dyspnea. On exam patient is moderately built and nourished, no apparent distress, normocephalic atraumatic, EOMI, normal breath sounds, clear to auscultation, S1-S2, no murmur, no pedal edema, abdomen soft, nontender, normal bowel sounds, alert, awake, oriented, grossly no focal deficits. Acute kidney injury Obstructive uropathy Renal calculus Continue IV fluids, Flomax Pain control Avoid NSAIDs given JORDAN Appreciate urology input Creatinine levels worsened to 1.5. KUB showed 8 mm mid ureteral stone. Plan for cystoscopy with stent placement tomorrow N.p.o. after midnight Hypertension Lisinopril on hold due to JORDAN Received Amlodipine while off Lisinopril I personally reviewed the record. Patient is interviewed and examined at bedside. Patient's care is coordinated with Nadiya Andrea TOLL PATROLMAN. Please refer to the documentation above for details of patient's presentation and for discussion of other issues. Subjective Patient seen and examined. Ambulating in the room. Voiding without difficulty however stone has not passed. Reports pain is well controlled. Denies abdominal pain or nausea. No chest pain or shortness of breath. Denies lightheadedness and dizziness. Review of Systems Review of Systems: All systems reviewed & are unremarkable except as noted in Subjective Physical Exam Constitutional: WD/WN, vitals as above Respiratory: normal respiratory effort, lungs clear to auscultation Cardiovascular: Rate/Rhythm: regular rate and regular rhythm Vessels: normal peripheral pulses Extremities: no edema Gastrointestinal (Abdomen): Inspection/Auscultation: normal bowel sounds Percussion/Palpation: abdomen soft; abdomen nontender Skin: no rashes, warm and dry Neurologic: no focal motor deficits Psychiatric: A+Ox3, euthymic affect Genitourinary: no CVA tenderness Results & Data Results & Data ([facility]) Vital Signs (Past 12 Hours) Vital Signs Temp Pulse Resp BP Pulse Ox 02/21/21 07:39 37 C 54 L 16 150/84 H 96 Laboratory Results Short CBC 02/21/21 Range/Units 06:03 WBC 6.28 (4.8-10.8) K/uL Hgb 12.4 L (14.0-18.0) g/dL Hct 37.6 L (42-52) % Plt Count 250 (130-400) K/uL BMP 02/21/21 06:03 Sodium 138 Potassium 4.2 Chloride 107 Carbon Dioxide 25 BUN 21 H Creatinine 1.53 H Glucose 94 Calcium 8.2 L Diagnostic Findings KUB X-Ray 02/21/21 08:00 KUB HISTORY: f/u renal calculi COMPARISON: KUB 02/19/2021. FINDINGS: The bowel gas pattern is unremarkable. There are no dilated loops of small bowel to suggest an obstruction. There is an 8 mm stone projecting over the right mid ureter which overlies the right L4 transverse process. This demonstrates mild distal migration compared to the prior CT examination. Calcifications within the right deep pelvis are consistent with phleboliths. No left ureteral calculi. No additional right renal calculi. There are 2 punctate adjacent stones within the interpolar region of the left kidney. No pneumoperitoneum or pneumatosis. IMPRESSION: 1. An 8 mm mid right ureteral stone. 2. Stable left-sided nephrolithiasis. ACT 112: Negative or not required by law. Electronically signed by: Isiah Caban M.D. 02/21/2021 9:39 AM
[2021-02-21] MEDS: ACETAMINOPHEN 325 MG TAB PO PRN ×2 (12:29→19:46)
--- NOTE | 2021-02-21 16:48 | XRay Report ---
XR chest 2V PA/lateral HISTORY: Preop chest x-ray. Right flank pain. Ureteral stone. COMPARISON: Chest 12/06/2015. FINDINGS: No pneumothorax. No pleural effusions. There are low lung volumes. Mild interstitial thicke tevin which is likely chronic. There are few perihilar scarlike densities within the lungs. This is si milar to the prior study. No new focal lung consolidations to suggest pneumonia. No evidence for pulm onary edema. IMPRESSION: Low lung volumes with chronic interstitial/scarlike changes as described above. This is similar to th e prior study. Otherwise, no acute process within the chest. ACT 112: Negative or not required by law. Electronically signed by: Isiah Caban M.D. 02/21/2021 4:46 PM
[2021-02-21] MEDS: ATORVASTATIN 20 MG TAB PO SCH (20:12)
[2021-02-22] MEDS: SODIUM CHLORIDE 0.9% 1000ML 1,000 ML IV SCH ×3 (03:26→23:21)
[2021-02-22 06:59] LABS: Hemoglobin 12.1 g/dL (14.0-18.0); Mean Corpuscular Hgb Conc 33.6 g/dL (32-36); Mean Corpuscular Volume 89.3 fL (80-100); Mean Platelet Volume 9.2 fL (7.4-10.4); Platelet Count 228 K/uL (130-400); RDW Standard Deviation 42.9 fL (36.4-46.3); Red Blood Count 4.03 M/uL (4.7-6.1)
--- NOTE | 2021-02-22 07:22 | Urology Progress Note ---
Date of Service February 22, 2021 Assessment & Plan (1) 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: (2) Acute right flank pain: (3) Acute kidney injury: Plan: 55yo M admitted with intractable right flank pain secondary to a 6mm right UPJ stone with hydronephrosis - Continues with right flank/back pain, no stone passage noted overnight. - Patient remains afebrile, nontoxic. - Lab work reviewed - white count normal, hemoglobin stable, and creatinine 1.56 (previous 1.53). - Keep NPO for planned procedure today. - Will proceed with OR for cystoscopy, right retrograde pyelogram, ureteroscopy, laser lithotripsy/stone treatment, and stent insertion depending on findings. - Risks and benefits of procedure discussed and to be reviewed with patient by Dr. Vivar. - OR notified. Preoperative CXR and EKG in chart. COVID-19 negative. Will cover with IV Ancef preoperatively. - Patient agreeable to plan, all questions were answered. - Will continue to follow while inpatient. Admission and Anticipated Discharge Date Admission Date: February 19, 2021 Supervising Physician Co-Signing Physician Notes Discussed patient and plan with [facility]. Agree with above. Subjective Pt examined at bedside this AM. Awake, resting in bed on arrival. He denies any stone passage overnight. Reports intermittent right flank/back discomfort. No fevers or chills. Denies nausea or vomiting. Voiding without difficulty. No hematuria or dysuria. Has been NPO overnight for procedure today. Review of Systems Constitutional: as per Subjective / HPI Gastrointestinal: as per Subjective / HPI Genitourinary: + as per Subjective / HPI Physical Exam Constitutional: well developed and well nourished; no acute distress and not ill appearing Respiratory: normal respiratory effort and able to speak in complete sentences; no labored breathing and no audible wheezes Gastrointestinal (Abdomen): Inspection/Auscultation: abdomen normal to inspection; abdomen not distended Percussion/Palpation: + abdomen tender (mild right flank and suprapubic tenderness with palpation) and abdomen soft; no guarding and abdomen not rigid Musculoskeletal: Head/Neck/Chest: normocephalic Skin: No visible rashes or lesions to exposed skin areas Neurologic: moves all extremities and awake Psychiatric: Orientation: alert, oriented x 3 and cooperative Results & Data ([place]) Vital Signs (Past 12 Hours) Vital Signs Temp Pulse Resp BP Pulse Ox 02/21/21 22:36 36.5 C 52 L 16 154/87 H 96 PG Care Time/CCT Total # of Minutes Spent Total Time Spent with Patient: Total time spent is greater than 50% in co ordination of care (as documented) at patient's floor/unit and/or counseling patient: Coding Level of Care Code 62186 Subseq Hosp Care Lvl 2 Diagnoses 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 N13.1 Acute right flank pain R10.9 Acute kidney injury N17.9
[2021-02-22 07:34] LABS: BUN Creatinine Ratio 13.4 (10-20); Calcium 8.7 mg/dl (8.5-10.1); Creatinine Clr Calc Pharmacy 58.8 ml/min; Est GFR (African American) 56.7 ml/min; Est GFR (Non-African American) 48.9 ml/min; Potassium 4.5 mmol/L (3.5-5.1)
[2021-02-22] MEDS ORDERED: ceFAZolin 2000MG 2,000 MG/15 ML SYR IV ONE (08:00)
[2021-02-22] MEDS: DOCUSATE SODIUM/SENNA 50/8.6MG TAB PO SCH ×2 (08:06→20:02)
[2021-02-22] MEDS ORDERED: DEXAMETHASONE SOD INJ 4 MG/ML VIAL ONE (08:09)
[2021-02-22] MEDS ORDERED: fentaNYL citrate 100 MCG/2 ML VIAL ONE ×2 (08:09→12:07)
[2021-02-22] MEDS ORDERED: ONDANSETRON INJ 2 MG/ML 2 ML VIAL ONE (08:09)
[2021-02-22] MEDS ORDERED: PROPOFOL IV EMULSION 10 MG/ML 20 ML VIAL IV ONE (08:09)
[2021-02-22] MEDS: FLUTICASONE PROPIONATE NA SPR 16 GM BTL NAE SCH (08:11)
[2021-02-22] MEDS: TAMSULOSIN HCL 0.4 MG CAP PO SCH (08:11)
[2021-02-22] MEDS: ALFUZOSIN HCL 10 MG TAB PO SCH (08:11)
[2021-02-22] MEDS: VENLAFAXINE HCL XR 75 MG CAPXR PO SCH (08:11)
[2021-02-22] MEDS: PANTOprazole 40 MG TAB PO SCH (08:11)
[2021-02-22] MEDS: amLODIPine BESYLATE 5 MG TAB PO SCH (08:33)
--- NOTE | 2021-02-22 09:28 | History & Physical Bridge Note ---
Date of Service February 22, 2021 History & Physical Bridge Note I have examined the patient, reviewed the History & Physical and in the interval since the performance of the History & Physical I have noted the following changes of clinical significance: no changes noted
[2021-02-22] MEDS ORDERED: GLYCOPYRROLATE 0.2 MG/ML VIAL ONE (10:38)
[2021-02-22] MEDS ORDERED: DIATRIZOATE MEGLUMINE 30% 100ML VIAL INSTIL ONE (11:54)
--- NOTE | 2021-02-22 12:06 | Operative Report ---
PG Post Operative Report Pre & Post Diagnosis Operation Date: 02/22/21 09:55 Pre-Op Diagnosis: Ureteral Stone Post-Op Diagnosis: Ureteral Stone I identified the patient and participated in the time-out.: Yes Procedure Operation Date: 02/22/21 09:55 Actual Procedures p Cystoscopy, right retrograde pyelogram with radiographic interpretation, attempted right ureteral stent placement, on table plain film cystogram Surgeon Terrell Vivar MD Visual Coordinator None Estimated Blood Loss 15 Findings See Below 1. Enlarged prostate making access to the ureteral orifice difficult due to bleeding 2. Suspected J hooking of right ureter. Unable to get wire passed distal ureter despite multiple wire attempts and several different open-ended catheter attempts. 3. Suspected small distal ureteral perforation based on contrast extravasation. Plain film cystogram was shot at the end which showed no concern for any intraperitoneal injury to the bladder. Due to difficult anatomy and continued manipulation, opted to abort case and place Hunt catheter with plan to transfer to Hospital with Interventional Radioloy capabilities to place nephrostomy tube vs nephroureteral drain. Specimens None Drains 20Fr hunt catheter with 10cc in balloon Anesthesia Type General Complications Likely right distal ureteral perforation with contrast extravasation. Disposition Accompanied Patient To Recovery: Yes Indications 55-year-old male with a history of an 8 mm right UPJ stone with hydronephrosis. He initially presented on 02/16/[address] showed the above-noted findings. He was discharged home on medical expulsive therapy. He then presented again to the ED on with worsening right flank pain and nausea. Renal ultrasound showed persistent right hydronephrosis and KUB showed stone in same position as CT scan. On presentation he was afebrile, white count was 9.4 and creatinine was 1.21. His pain did not improve and he was ultimately consented for cystoscopy, right retrograde pyelogram, right ureteroscopy, laser lithotripsy, basket stone extraction and right stent placement. His urinalysis on presentation was nonconcerning for infection. Description of Procedure After informed consent was obtained, the patient was transported operative suite. General anesthesia was induced. He was prepped and draped in a sterile fashion. He received preoperative antibiotics in the form of Ancef. An appropriate surgical timeout was performed. 22 [place] rigid scope was inserted per urethra into the bladder. Inspection of the bladder revealed no lesions or stones. The prostate was noted to be enlarged with a high bladder neck. There was bleeding from the prostate which inhibited visualization and made finding the right ureteral orifice somewhat difficult. The right ureteral orifice was eventually found and I attempted to cannulate this with a 5 [place] open-ended catheter, but due the angle, was unsuccessful. I then advanced a sensor wire through the 5 [place]ian open-ended catheter and attempted to cannulate the ureter. I met resistance and under live fluoroscopy was not able to pass the wire past the distal ureter and there appeared to be J hooking of the right ureter. I then advanced a 5 [place] open-ended catheter and remove the wire and shot a retrograde which showed the course of the ureter going out laterally and then some contrast going midway up the ureter. I then proceeded to use multiple wires including an angled tip sensor wire as well as an angled tip zip wire under direct fluoroscopy but was unable to advance the wire past the distal ureter. I did shoot several right retrograde pyelograms to ensure there was no extravasation or injury. I then used a project manager process development catheter which had a right angle to it and attempted to cannulate the UO with this and again advanced an angled sensor wire. This was unsuccessful. At this point I shot another ret rograde pyelogram which showed a small amount of contrast extravasation which I suspected was from the distal right ureter. Due to this and poor visualization from bleeding from the prostate, I opted to abort the case at this point. I placed a 20 [place] catheter with return of urine and inflated the balloon with 10 cc of sterile water. Although the contrast extravasation was likely from the distal right ureter, I elected to shoot a plain film cystogram to rule out any bladder injury. I filled the bladder with 200 cc of contrast and water and shot a plain film cystogram which did show the previously noted contrast extravasation, likely from the distal ureter. There was no intraperitoneal bladder injury. I emptied the bladder and took another shot and an additional oblique picture and showed no posterior extravasation. This concluded the end of the case. All counts correct at the end of the case. I was present scrubbed and actively participated for the entire procedure. I did call his immediately following the procedure and updated her with the findings. I then waited for the patient to be awake in the PACU and discussed results with him. He was having some discomfort from the catheter but otherwise denied any abdominal pain he was obviously frustrated, which I understand. I explained it probably best to transfer the patient to a center that could place a nephrostomy tube to decompress the kidney as I suspect he will continue to have pain as we are not able to stent from below. I contacted the hospitalist service and recommended transfer and told him to reach out with me during the call so I could speak with the urologist accepted the transfer. I attest to the content of the Intraoperative Record and any orders documented therein. Any exceptions are noted below.
[2021-02-22] MEDS: fentaNYL citrate 100 MCG/2 ML VIAL IV PRN ×2 (12:07→12:22)
[2021-02-22] MEDS ORDERED: ATROPINE SULFATE 0.1 MG/ML 10ML SYR IV PRN (12:08)
[2021-02-22] MEDS ORDERED: ONDANSETRON INJ 2 MG/ML 2 ML VIAL IV PRN (12:08)
[2021-02-22] MEDS ORDERED: ePHEDrine sulfate 50 MG/ML AMP IV PRN (12:08)
[2021-02-22] MEDS ORDERED: HYDROmorphone INJ 2 MG/ML SYR/VIAL IV PRN (12:08)
--- NOTE | 2021-02-22 12:10 | Anesthesiology Consultation ---
Date of Service February 22, 2021 Assessment & Plan Chart Review Chart Review: Acceptable Risk for Surgery Consults Requested none History Surgery Operation Date: 02/22/21 09:55 Proposed Procedures p Cystoscopy, Right Ureteroscopy, Retrograde Pyelogram, Laser Litho, Right Stent Placement - Terrell Vivar MD Height/Weight Height: 5 ft 7 in Weight: 97.4 kg Allergies Allergy/AdvReac Type Severity Reaction Status Date / Time No Known Allergies Allergy Mild Unverified 02/16/21 00:27 Medications Home Medications Medication Instructions Recorded Confirmed Last Taken alfuzosin 10 mg tablet,extended 10 mg PO DAILY 02/16/21 02/19/21 02/15/21 release 24 hr atorvastatin 20 mg tablet 20 mg PO HS 02/16/21 02/19/21 02/18/21 fluticasone propionate 50 1 spray INTRANASAL DAILY 02/16/21 02/19/21 02/17/21 mcg/actuation nasal spray,suspension lisinopril 30 mg tablet 30 mg PO QAM 02/16/21 02/19/21 02/18/21 omeprazole 20 mg capsule,delayed 20 mg PO DAILY 02/16/21 02/19/21 Unknown release ondansetron 4 mg disintegrating 4 mg PO Q6H PRN #14 tab 02/16/21 02/19/21 02/18/21 tablet venlafaxine 37.5 mg 75 mg PO QAM 02/16/21 02/19/21 02/18/21 capsule,extended release 24 hr acetaminophen 325 mg tablet 650 mg PO QID PRN 02/19/21 02/19/21 02/19/21 oxycodone 5 mg tablet 5 mg PO Q4H PRN 02/19/21 02/19/21 Unknown tamsulosin 0.4 mg capsule 0.4 mg PO QAM 02/19/21 02/19/21 02/19/21 Active Medications Generic Name Dose Route Start Last Admin Trade Name Freq PRN Reason Stop Dose Admin Acetaminophen 650 mg 02/19/21 19:59 02/21/21 19:46 Acetaminophen 325 Mg Tab PO 03/21/21 19:58 650 mg QID PRN Administration Mild Pain Alfuzosin HCl 10 mg 02/20/21 09:00 02/22/21 08:11 Alfuzosin Hcl 10 Mg Tab PO 03/22/21 08:59 Not Given DAILY TIKI Amlodipine Besylate 5 mg 02/22/21 09:00 02/22/21 08:33 Amlodipine Besylate 5 Mg Tab PO 03/24/21 08:59 5 mg QAM TIKI Administration Atorvastatin Calcium 20 mg 02/19/21 21:00 02/21/21 20:12 Atorvastatin 20 Mg Tab PO 03/21/21 20:59 20 mg HS TIKI Administration Fluticasone Propionate 1 sprays 02/20/21 09:00 02/22/21 08:11 Fluticasone Propionate Na Spr 16 Gm Btl KATLYN 03/22/21 08:59 1 sprays DAILY TIKI Administration Sodium Chloride 1,000 mls @ 125 mls/hr 02/19/21 19:59 02/22/21 08:41 Nss 1000ml IV 03/21/21 19:58 0 mls/hr .Q8H TIKI Infusion Ondansetron HCl 4 mg 02/19/21 19:59 02/21/21 07:57 Ondansetron Inj 2 Mg/Ml 2 Ml Vial IV 03/21/21 19:58 4 mg Q6H PRN Administration Nausea And Vomiting Oxycodone HCl 5 mg 02/19/21 19:59 02/22/21 08:10 Oxycodone Hcl Ir 5 Mg Tab (Immediate Release) PO 03/05/21 19:58 5 mg Q4H PRN Administration Moderate Pain Pantoprazole Sodium 40 mg 02/20/21 09:00 02/22/21 08:11 Pantoprazole 40 Mg Tab PO 03/22/21 08:59 40 mg DAILY TIKI Administration Protocol Polyethylene Glycol 17 gm 02/20/21 10:59 02/20/21 11:52 Polyethylene (Miralax) 17 Gm Pack PO 03/22/21 10:58 17 gm DAILY PRN Administration Constipation Senna/Docusate Sodium 1 tab 02/20/21 21:00 02/22/21 08:06 Docusate Sodium/Senna 50/8.6mg Tab PO 03/22/21 20:59 Not Given BID TIKI Tamsulosin HCl 0.4 mg 02/20/21 09:00 02/22/21 08:11 Tamsulosin Hcl 0.4 Mg Cap PO 03/22/21 08:59 0.4 mg QAM TIKI Administration Venlafaxine HCl 75 mg 02/20/21 09:00 02/22/21 08:11 Venlafaxine Hcl Xr 75 Mg Capxr PO 03/22/21 08:59 75 mg QAM TIKI Administration NPO Date Last Intake of Fluids: 02/21/21 Time Last Intake of Fluids: 22:30 Last Intake of Fluids Comment: sips with morning meds Date Last Intake of Solids: 02/21/21 Time Last Intake of Solids: 21:00 Past Medical History Medical History BPH (benign prostatic hyperplasia) Depression Esophageal reflux (08/24/12) HTN (hypertension) Tobacco use Past Family History Family History Other Heart disease Past Surgical History Surgical History History of appendectomy History of colonoscopy Social History Smoking Status: Never smoker tobacco type: smokeless tobacco Do You Dip or Chew Tobacco: Yes Hx Alcohol Use: No Hx Substance Use: No substance use type: does not use Physical Exam Vital Signs Last Vital Signs Temp 36.7 C 02/22/21 08:54 Pulse 58 L 02/22/21 08:54 Resp 16 02/22/21 08:54 BP 155/82 H 02/22/21 08:54 Pulse Ox 95 02/22/21 08:54 Testing Laboratory Results 02/22/21 06:24 02/22/21 06:24 Urine Color Yellow 02/19/21 14:25 Urine Appearance Clear (Clear) 02/19/21 14:25 Urine pH 6.5 (4.5-7.5) 02/19/21 14:25 Ur Specific [place] 1.022 (1.000-1.030) 02/19/21 14:25 Urine Protein Negative (Negative) 02/19/21 14:25 Urine Glucose (UA) Negative (Negative) 02/19/21 14:25 Urine Ketones Trace (Negative) H 02/19/21 14:25 Urine Nitrite Negative (Negative) 02/19/21 14:25 Ur Leukocyte Esterase Negative (Negative) 02/19/21 14:25
--- NOTE | 2021-02-22 12:31 | Fluoroscopy Report ---
FL retrograde includes kub CLINICAL INDICATION: MN ^RETROGRADE. TECHNIQUE: 9 views were obtained with the C-arm in the OR with the above procedure. Total fluoroscopy time was 121 seconds. Total skin dose was 50.97 mGy. Comparison: None available at the time of this dictation. FINDINGS/IMPRESSION: Multiple intraoperative images of retrograde cystogram is seen. Please correlate with intraoperative fluoroscopy and operative report. ACT 112: Negative or not required by law. Electronically signed by: Alverto Aguirre M.D. 02/22/2021 12:30 PM
[2021-02-22] MEDS: OXYBUTYNIN CHLORIDE 5 MG TAB PO SCH ×2 (12:34→20:02)
--- NOTE | 2021-02-22 13:05 | Anesthesiology Progress Note ---
Date of Service February 22, 2021 Anesthesia Post Procedure Vital Signs Vital Signs: Temp Pulse Pulse Pulse Resp BP BP 02/22/21 13:00 36.7 C 71 12 126/88 02/22/21 12:50 73 20 120/80 02/22/21 12:40 74 17 122/82 02/22/21 12:30 80 16 130/81 02/22/21 12:20 77 15 137/94 02/22/21 12:10 85 15 159/105 H 02/22/21 12:03 36.4 C L 89 58 L 18 162/96 H 02/22/21 08:54 36.7 C 58 L 16 155/82 H 02/22/21 07:55 36.8 C 51 L 16 170/94 H 02/21/21 22:36 36.5 C 52 L 16 154/87 H 02/21/21 14:28 36.7 C 54 L 16 138/81 02/21/21 14:00 Pulse Ox Pulse Ox 02/22/21 13:00 98 02/22/21 12:50 95 02/22/21 12:40 94 02/22/21 12:30 100 02/22/21 12:20 96 02/22/21 12:10 96 02/22/21 12:03 99 02/22/21 08:54 95 02/22/21 07:55 97 02/21/21 22:36 96 02/21/21 14:28 97 02/21/21 14:00 96 Pain Intensity Right Flank: Pain Intensity: 4 Penis: Pain Intensity: 4 Transfer of Care Handoff Completed per policy Notes Mental Status: alert / awake / arousable and participated in evaluation Patient Amnestic to Procedure: Yes Nausea / Vomiting: adequately controlled Pain: adequately controlled Airway Patency, RR, SpO2: stable & adequate BP & HR: stable & adequate Hydration State: stable & adequate Anesthetic Complications: no major complications apparent
[2021-02-22] MEDS ORDERED: LIDOCAINE 2% JELLY 5 ML TUBE ONE (13:52)
--- NOTE | 2021-02-22 14:42 | Hospitalist Progress Note ---
Date of Service February 22, 2021 Assessment & Plan (1) 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: (2) Ureterolithiasis: Plan: -Initially presented to ED on 02/[address] ABD/pelvis showed mild hydronephrosis and hydroureter is seen on the right with obstructive 6 mm calculus within proximal aspect of the right ureter. Patient was discharged home however return to ED on 02/19 due to increased pain. -UA unremarkable -Renal ultra sound 02/20 -mild to moderate right hydroureteronephrosis however stone was not visualized -KUB 02/21 shows 8 mm right mid ureteral stone -Evaluated by urology on 02/20 who did not recommend surgical intervention at that time, however due to worsening renal function, surgical intervention was advised. -Patient went to the OR today for cystoscopy, right retrograde pyelogram, ureteroscopy, laser lithotripsy/stone treatment, and stent insertion - unfortunately procedure was unsuccessful and patient will require nephrostomy tube placement with IR -Case discussed with interventional radiology at [facility] and hospitalist service however accepted the patient in transfer -bed placement is pending -Maintain Andrews -Continue Flomax, IVF -Would avoid ketorolac due to increased creatinine -Pain currently well controlled with oxycodone (3) Acute kidney injury: Plan: -Creatinine 0.95 -> 1.2 -> 1.4 -> 1.5 -> 1.56 -Likely due to ureterolithiasis with hydroureteronephrosis -Continue to hold lisinopril. Ketorolac DC'd. -IVF, trend renal functions (4) HTN (hypertension): Plan: -Holding lisinopril as above -amlodipine 5 mg daily started 02/21, BP improved (5) BPH (benign prostatic hyperplasia): Plan: -Continue alfuzosin -Follows with Dr. Scooter Bernal as an outpatient (6) Depression: Plan: -Continue venlafaxine (7) Tobacco use: Plan: -Cessation recommended (8) DVT prophylaxis: Plan: -SCDs, ambulate Admission and Anticipated Discharge Date Admission Date: February 19, 2021 Supervising Physician Co-Signing Physician Notes History and physical exam performed by hi. 55-year-old man who presents with renal colic and found to have a right kidney stone with mild to moderate right hydroureteronephrosis. Patient continues to have worsening renal function with creatinine increasing to 1.56 today from 1.2 on admission. Had cystoscopy with pyelogram and ureteroscopy today which was unsuccessful. Discussed with urology who recommend transfer to facility with IR services for PCN. I called transfer center in [place] and discussed with the hospitalist team as well as urology and IR. Patient was accepted blood transfer center stated that it may be up to 48 hours before bed is available. Patient's also requested seeking transfer to [place] if possible. I also talked with transfer center at [place] and patient was accepted to Dr. Reed. but they also stated it could be a while before bed is available Patient can be discharged to whichever center has an availble bed. Other plans as detailed by Nadiya VARGAS Subjective Patient seen and examined post procedure. Reports burning around Andrews catheter insertion point. Denies other pain. No fevers or chills. No chest pain or shortness of breath. Denies abdominal pain or nausea. Physical Exam Constitutional: WD/WN, vitals as above Respiratory: normal respiratory effort, lungs clear to auscultation Cardiovascular: Rate/Rhythm: regular rate and regular rhythm Vessels: normal peripheral pulses Extremities: no edema Gastrointestinal (Abdomen): Percussion/Palpation: abdomen soft; abdomen nontender Skin: no rashes, warm and dry Neurologic: no focal motor deficits Psychiatric: A+Ox3, euthymic affect Genitourinary: Andrews in place with grossly bloody urine Results & Data Results & Data ([facility]) Vital Signs (Past 12 Hours) Vital Signs Temp Pulse Pulse Resp BP Pulse Ox 02/22/21 14:22 36.8 C 58 L 16 149/90 H 94 02/22/21 13:55 36.8 C 59 L 16 144/90 H 90 02/22/21 13:20 36.6 C 67 16 130/82 93 02/22/21 13:10 70 13 121/79 95 02/22/21 13:00 36.7 C 71 12 126/88 98 02/22/21 12:50 73 20 120/80 95 02/22/21 12:40 74 17 122/82 94 02/22/21 12:30 80 16 130/81 100 02/22/21 12:20 77 15 137/94 96 02/22/21 12:10 85 15 159/105 H 96 02/22/21 12:03 36.4 C L 89 58 L 18 162/96 H 99 02/22/21 08:54 36.7 C 58 L 16 155/82 H 95 02/22/21 07:55 36.8 C 51 L 16 170/94 H 97 Laboratory Results Short CBC 02/22/21 Range/Units 06:24 WBC 6.40 (4.8-10.8) K/uL Hgb 12.1 L (14.0-18.0) g/dL Hct 36.0 L (42-52) % Plt Count 228 (130-400) K/uL BMP 02/22/21 06:24 Sodium 138 Potassium 4.5 Chloride 107 Carbon Dioxide 26 BUN 21 H Creatinine 1.56 H Glucose 92 Calcium 8.7
[2021-02-22] MEDS ORDERED: PHENAZOPYRIDINE HCL 100 MG TAB PO PRN (15:41)
[2021-02-22] MEDS ORDERED: BELLADONNA/OPIUM SUPP 60 MG SUPP PR PRN (18:32)
[2021-02-22] MEDS: oxyCODONE HCL IR 5 MG TAB (IMMEDIATE RELEASE) PO PRN ×2 (19:18→23:21)
[2021-02-22] MEDS: ATORVASTATIN 20 MG TAB PO SCH (20:02)
--- NOTE | 2021-02-22 21:52 | Electrocardiogram Report ---
Test Reason : Blood Pressure : / mmHG Vent. Rate : 058 BPM Atrial Rate : 058 BPM P-R Int : 166 ms QRS Dur : 078 ms QT Int : 422 ms P-R-T Axes : 068 -08 010 degrees QTc Int : 414 ms Sinus bradycardia Otherwise normal ECG When compared with ECG of 05-JAN-2006 03:30, T wave amplitude has increased in Anterior leads Confirmed by Da Wood ([id number]) on 02/22/2021 9:51:51 PM Referred By: REFERRED SELF Confirmed By:Da Wood
[2021-02-22] MEDS: ACETAMINOPHEN 325 MG TAB PO PRN (21:54)
[2021-02-23] MEDS ORDERED: BELLADONNA/OPIUM SUPP 60 MG SUPP PR STA (01:07)
[2021-02-23] MEDS ORDERED: KETOROLAC TROMETHAMINE 15 MG/ML VIAL IV ONE (02:28)
[2021-02-23] MEDS ORDERED: KETOROLAC TROMETHAMINE 15 MG/ML VIAL ONE (02:32)
[2021-02-23] MEDS: SODIUM CHLORIDE 0.9% 1000ML 1,000 ML IV SCH ×2 (06:47→14:38)
[2021-02-23 07:34] LABS: Hematocrit (blood only) 35.8 % (42-52); Hemoglobin 12.1 g/dL (14.0-18.0); Mean Corpuscular Hgb Conc 33.8 g/dL (32-36); Mean Corpuscular Volume 88.8 fL (80-100); Mean Platelet Volume 8.9 fL (7.4-10.4); Platelet Count 242 K/uL (130-400); RDW Standard Deviation 42.1 fL (36.4-46.3); Red Blood Count 4.03 M/uL (4.7-6.1); White Blood Count 8.03 K/uL (4.8-10.8)
--- NOTE | 2021-02-23 07:48 | Hospitalist Progress Note ---
Date of Service February 23, 2021 Assessment & Plan (1) 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: (2) Ureterolithiasis: Plan: -Initially presented to ED on 02/[address] ABD/pelvis showed mild hydronephrosis and hydroureter is seen on the right with obstructive 6 mm calculus within proximal aspect of the right ureter. Patient was discharged home however return to ED on 02/19 due to increased pain. -Renal ultra sound 02/20 -mild to moderate right hydroureteronephrosis however stone was not visualized -KUB 02/21 shows 8 mm right mid ureteral stone -Evaluated by urology on 02/20 who did not recommend surgical intervention at that time, however due to worsening renal function, surgical intervention was advised -Patient went to the OR today for cystoscopy, right retrograde pyelogram, ureteroscopy, laser lithotripsy/stone treatment, and stent insertion -unfortu nately procedure was unsuccessful and patient will require nephrostomy tube placement with IR -Case discussed with interventional radiology at [facility] and hospitalist service however accepted the patient in transfer -bed placement is pending. Case also discussed with [facility], urology and nephro services and accepted pending bed availability -Patient requested hunt removal despite urology recommendation to keep. Bladder scan, straight cath PRN -Advanced to clears this morning -Continue Flomax, IVF -Continue PRN oxycodone, tylenol. Avoiding ketorolac due to increased creatinine (3) Acute kidney injury: Plan: -Creatinine 0.95 -> 1.2 -> 1.4 -> 1.5 -> 1.56 -> 1.63 today -Likely due to ureterolithiasis with hydroureteronephrosis -Continue to hold lisinopril. Ketorolac DC'd -IVF, trend renal functions (4) HTN (hypertension): Plan: -Holding lisinopril as above -Amlodipine 5 mg daily started 02/21, BP improved (5) BPH (benign prostatic hyperplasia): Plan: -Continue alfuzosin -Follows with Dr. Scooter Bernal as an outpatient (6) Depression: Plan: -Continue venlafaxine (7) Tobacco use: Plan: -Cessation recommended (8) DVT prophylaxis: Plan: -SCDs, ambulate Admission and Anticipated Discharge Date Admission Date: February 19, 2021 Supervising Physician Co-Signing Physician Notes History and physical exam performed by me. 55-year-old man who presents with renal colic and found to have a right kidney stone with mild to moderate right hydroureteronephrosis. Patient continues to have worsening renal function with creatinine increasing to 1.63 today from 1.2 on admission (normal Cr of 0.95 on 02/15/21) Had cystoscopy with pyelogram and ureteroscopy yesterday by Urology which was unsuccessful. Discussed with urology who recommend transfer to facility with IR services for PCN. Yesterday, I called transfer center in [place] and [place] and patient was accepted to both. However, they both do not have available beds at this time and do not know when bed will be available. I called Interventional Radiologist at [facility] Dr Jordan Carrasquillo and discussed the patient with him. He stated he will be able to schedule patient for procedure tomorrow if able to transfer to [facility] today. I also discussed patient with Admitting Hospitalist who accepted patient. I discussed with transfer center who will try to get him to [facility] today once bed is available Spoke to and updated her Patient asked for his hunt removed last night and had been retaining since. I explained to patient the need for catheterization at this time Place hunt Other plans as detailed by Joaquina Gonzalez PA-C Subjective Patient seen and examined in 323-1. Stone pain controlled with PRN analgesics. Requested hunt catheter to be removed during the night and required straight cath x 1 this morning. No fevers or chills. No chest pain or shortness of breath. Denies abdominal pain or nausea. Passing flatus, has has bowel movement since admission. Review of Systems Review of Systems: At least ten systems reviewed and negative except as noted in the HPI. Physical Exam Physical Exam: General Appearance: WD/WN, vitals as above, NAD, sitting up in bed, pleasant, conversing easily Head: normocephalic, atraumatic Eyes: normal inspection, PERRL, conjunctivae normal, anicteric sclerae ENT: external ear and nose normal, oropharynx normal Neck: normal visual inspection, trachea midline, no thyromegaly Respiratory: normal respiratory effort, lungs clear to auscultation, no wheeze, rales, rhonchi. No accessory muscle use Cardiovascular: regular rate, rhythm, no murmur, normal peripheral pulses, no BLE edema. Vessels: no JVD Chest: normal inspection of chest Abdomen/GI: normal bowel sounds, soft, nontender, no hepatosplenomegaly Extremities/Musculoskeletal: no cyanosis or clubbing, extremities motor strength 5/5 Neurologic: PERRL, EOMI, accommodation nl, no face palsy, no dysarthria, CN's II-XI intact bilaterally and moves all extremities Psychiatric: A+Ox3, euthymic affect Skin: no rashes, normal color, warm/dry Results & Data Results & Data ([facility]) Vital Signs (Past 12 Hours) Vital Signs Temp Pulse Resp BP BP Pulse Ox 02/23/21 07:06 36.9 C 54 L 16 158/91 H 98 02/23/21 02:32 36.9 C 53 L 16 155/91 H 97 02/23/21 01:14 174/98 H 02/22/21 22:05 36.9 C 64 16 189/95 H 96 Laboratory Results Short CBC 02/19/21 02/20/21 02/21/21 Range/Units 14:25 06:37 06:03 WBC (4.8-10.8) K/uL Hgb (14.0-18.0) g/dL Hct (42-52) % Plt Count (130-400) K/uL Creatinine 1.21 1.45 H 1.53 H (0.6-1.4) mg/dl 02/22/21 02/23/21 02/23/21 Range/Units 06:24 07:17 07:17 WBC 8.03 (4.8-10.8) K/uL Hgb 12.1 L (14.0-18.0) g/dL Hct 35.8 L (42-52) % Plt Count 242 (130-400) K/uL Creatinine 1.56 H 1.63 H (0.6-1.4) mg/dl BMP 02/23/21 07:17 Sodium 138 Potassium 4.2 Chloride 108 H Carbon Dioxide 24 BUN 23 H Creatinine 1.63 H Glucose 89 Calcium 8.2 L Diagnostic Findings KUB X-Ray 02/19/21 19:09 KUB CLINICAL HISTORY: Right ureteral stone. FINDINGS: 2 AP supine abdominal radiographs are correlated with abdominal CT dated 02/16/2021. There is a nonobstructed abdominal bowel gas pattern noting moderate colonic fecal retention. This largely obscures the right renal shadow. A punctate nonobstructing calculus projects over the interpolar left kidney. No definite calcifications are seen projecting over the right kidney or along the course of ureters. Calcifications in the right hemipelvis likely represent phleboliths. The bony structures appear intact. IMPRESSION: 1. A punctate nonobstructing calculus projects over the interpolar left kidney. 2. The patient's right ureteral stone is not definitively visualized. The right renal shadow is largely obscured by colonic contents. 3. Right pelvic basin calcifications likely represent phleboliths, although 1 of these representing a distal right ureteral stone is not entirely excluded. Electronically signed by: Johnny Winters M.D. 02/19/2021 7:55 PM Renal Ultrasound 02/20/21 09:30 ULTRASOUND KIDNEYS AND BLADDER CLINICAL HISTORY: Right ureteral stone. COMPARISON STUDY: Abdominal CT dated 02/16/2021 TECHNIQUE: Real-time, grayscale, and color flow sonography of the kidneys and bladder is performed. Images are reviewed in the transverse and longitudinal planes. FINDINGS: Kidneys: The kidneys are normal in size and echotexture. The right kidney measures 12.0 x 6.7 x 6.8 cm and the left kidney measures 11.9 x 6.0 x 6.2 cm. There is mild to moderate right-sided hydroureteronephrosis. No hydronephrosis is seen on the left. A nonobstructing calculus is noted in the left kidney. There is no sonographic evidence of contour deforming renal mass lesion. No perinephric fluid is identified. Bladder: The prostate gland is mildly enlarged and heterogeneous noting median lobe hypertrophy. The bladder is partially distended. The wall appears thickened and trabeculated indicating chronic outlet obstruction. Only the left ureteral jet was seen. Upper abdomen: Survey images of the liver show evidence of steatosis. IMPRESSION: 1. There is mild to moderate right hydroureteronephrosis, and a right ureteral jet was not visualized. These findings correspond to the known history of a right ureteral calculus. The stone itself was not visualized by ultrasound. 2. There is a nonobstructing left renal calculus. No left-sided hydronephrosis is seen. 3. Prostatomegaly with evidence of chronic bladder outlet obstruction. 4. Hepatic steatosis. ACT 112: Negative or not required by law. Electronically signed by: Johnny Winters M.D. 02/20/2021 10:26 AM KUB X-Ray 02/21/21 08:00 KUB HISTORY: f/u renal calculi COMPARISON: KUB 02/19/2021. FINDINGS: The bowel gas pattern is unremarkable. There are no dilated loops of small bowel to suggest an obstruction. There is an 8 mm stone projecting over the right mid ureter which overlies the right L4 transverse process. This demonstrates mild distal migration compared to the prior CT examination. Calcifications within the right deep pelvis are consistent with phleboliths. No left ureteral calculi. No additional right renal calculi. There are 2 punctate adjacent stones within the interpolar region of the left kidney. No pneumoperitoneum or pneumatosis. IMPRESSION: 1. An 8 mm mid right ureteral stone. 2. Stable left-sided nephrolithiasis. ACT 112: Negative or not required by law. Electronically signed by: Isiah Caban M.D. 02/21/2021 9:39 AM Chest X-Ray 02/21/21 14:49 XR chest 2V PA/lateral HISTORY: Preop chest x-ray. Right flank pain. Ureteral stone. COMPARISON: Chest 12/06/2015. FINDINGS: No pneumothorax. No pleural effusions. There are low lung volumes. Mild interstitial thickening which is likely chronic. There are few perihilar scarlike densities within the lungs. This is similar to the prior study. No new focal lung consolidations to suggest pneumonia. No evidence for pulmonary edema. IMPRESSION: Low lung volumes with chronic interstitial/scarlike changes as described above. This is similar to the prior study. Otherwise, no acute process within the chest. ACT 112: Negative or not required by law. Electronically signed by: Isiah Caban M.D. 02/21/2021 4:46 PM Retrograde Pyelogram 02/22/21 00:00 FL retrograde includes kub CLINICAL INDICATION: MN ^RETROGRADE. TECHNIQUE: 9 views were obtained with the C-arm in the OR with the above procedure. Total fluoroscopy time was 121 seconds. Total skin dose was 50.97 mGy. Comparison: None available at the time of this dictation. FINDINGS/IMPRESSION: Multiple intraoperative images of retrograde cystogram is seen. Please correlate with intraoperative fluoroscopy and operative report. ACT 112: Negative or not required by law. Electronically signed by: Alverto Aguirre M.D. 02/22/2021 12:30 PM
[2021-02-23 08:06] LABS: Calcium 8.2 mg/dl (8.5-10.1); Creatinine Clr Calc Pharmacy 56.3 ml/min; Est GFR (African American) 53.8 ml/min; Est GFR (Non-African American) 46.4 ml/min; Potassium 4.2 mmol/L (3.5-5.1)
--- NOTE | 2021-02-23 08:15 | Urology Progress Note ---
Date of Service February 23, 2021 Assessment & Plan (1) Ureterolithiasis: Plan: 55 yo M s/p cystoscopy, right retrograde pyelogram, attempted right ureteral stent, on table cystogram on 02/22 Had a lengthy discussion with the patient and his yesterday regarding inability to place stent and need for transfer for right nephrostomy tube. They both agreed. I spoke personally with [facility] and [facility] physicians and we are currently now waiting for an open bed. Recommend clear liquid diet throughout the day in the event patient is transferred so that will not hamper any procedure at outside institution. If transfer will not happen until the following day can have a regular diet at night. Recommend continued Andrews catheter drainage for right distal ureteral perforation. Despite that, patient requested that Andrews be removed last night and he has since retained. I had another long conversation with him today that my medical advice was to have the Andrews catheter replaced but he would like to leave it out knowing the risks associated with this. Urologic recommendation is to replace Andrews catheter. Urology will continue to follow patient in hospital until transfer Admission and Anticipated Discharge Date Admission Date: February 19, 2021 Subjective Patient is status post cystoscopy, right retrograde pyelogram and attempted right ureteral stent placement yesterday. Due to challenging anatomy, stent was unable to be placed. He has now pending available bed at a tertiary care center to have a nephrostomy tube placed. A Andrews catheter was placed at the end of the case for precaution reasons. The patient was instructed that this catheter needs to stay in for 5 to 7 days total. Overnight, he requested the catheter be removed and it was. He initially voided a small amount but then was bladder scanned for 600 today and was straight cathed. He has been afebrile and otherwise stable. He does report discomfort with the previous catheter and some right flank pain due to his obstructing stone. I had a long discussion with him today about the importance of having a catheter replaced. I explained that it was for his safety after the procedure. He expressed understanding but ultimately wants to have the catheter remain out, which I cannot force him to have replaced. He understands the risks associated with this. His labs show no leukocytosis and a creatinine that is roughly baseline over the past few days at 1.63. It was 1.56 the previous day. Review of Systems Review of Systems: 14 point review of systems negative outside of what is listed above in HPI Physical Exam Physical Exam: General: Alert and oriented, no acute distress HEENT: Normocephalic, mucous membranes moist Cardiovascular: Regular rate Pulmonary: Nonlabored respirations Abdomen: Nondistended : Circumcised phallus with orthotopic meatus. Testicles descended bilaterally and palpably normal. Right testicle nontender and non-swollen. Extremities: Moves all 4 spontaneously Neuro: No gross deficits Skin: Warm, dry, no rashes noted Results & Data ([facility]) Vital Signs (Past 12 Hours) Vital Signs Temp Pulse Resp BP BP Pulse Ox 02/23/21 07:06 36.9 C 54 L 16 158/91 H 98 02/23/21 02:32 36.9 C 53 L 16 155/91 H 97 02/23/21 01:14 174/98 H 02/22/21 22:05 36.9 C 64 16 189/95 H 96 PG Care Time/CCT Total # of Minutes Spent Total Time Spent with Patient: Total time spent is greater than 50% in coordination of care (as documented) at patient's floor/unit and/or counseling patient: Coding Level of Care Code 37953 Subseq Hosp Care Lvl 2 Diagnoses Ureterolithiasis N20.1
[2021-02-23] MEDS: ALFUZOSIN HCL 10 MG TAB PO SCH (09:00)
[2021-02-23] MEDS: amLODIPine BESYLATE 5 MG TAB PO SCH (09:01)
[2021-02-23] MEDS: VENLAFAXINE HCL XR 75 MG CAPXR PO SCH (09:01)
[2021-02-23] MEDS: TAMSULOSIN HCL 0.4 MG CAP PO SCH (09:01)
[2021-02-23] MEDS: DOCUSATE SODIUM/SENNA 50/8.6MG TAB PO SCH (09:01)
[2021-02-23] MEDS: OXYBUTYNIN CHLORIDE 5 MG TAB PO SCH (09:01)
[2021-02-23] MEDS: FLUTICASONE PROPIONATE NA SPR 16 GM BTL NAE SCH (09:01)
[2021-02-23] MEDS: PANTOprazole 40 MG TAB PO SCH (09:01)
--- NOTE | 2021-02-23 16:16 | Discharge Summary ---
Date of Service February 23, 2021 Admission HPI Per Admitting Provider This is a 55yo M with a PMH of HTN, dyslipidemia, depression GERD, tobacco use who presents with continued renal colic. Initially came to ED [address] abd/pelvis from 02/16/21 with mild hydronephrosis and hydroureter is seen on the right with obstructive 6 mm calculus within proximal aspect of the right ureter, asymmetrical stranding of the right perinephric fat and delayed right nephrogram. Was discharged home with hope that he would pass stone but has continued to have persistent pain. Pain is described as colicky and intermittent, located right suprapubic area wrapping around to R flank and back. Endorses nausea but no vomiting. Has some burning with urination. No fever or chills. No lightheadedness, headache, chest pain, SOB, appetite changes, hematuria or diarrhea. Has been using oxycodone, Zofran and Flomax since discharge 4 days ago. Has not had a bowel movement since Saturday. Follows with Dr. Bernal for history of BPH. Admission Exam Per Admitting Provider GENERAL: Alert and oriented x3. NAD, on RA. HEENT: No pallor, no icterus. Pupils equal, round and reactive to light. Oral mucosa moist. NECK: No JVD, no neck masses. HEART: S1 and S2 heard. Regular rate and rhythm. No murmur, no gallop. RESPIRATORY SYSTEM: Normal AP diameter. No accessory muscle use. No wheezing, no crackles. ABDOMEN: Soft, bowel sounds present, nontender, no distention. CENTRAL NERVOUS SYSTEM: Alert and oriented x3. No facial droop. Speech is clear. Obeys simple commands. Moves extremities. EXTREMITIES: No edema, no erythema seen. Principal Diagnosis Right nephrolithiasis, JORDAN Discharge Exam General Appearance: WD/WN, vitals as above, NAD, sitting up in bed, pleasant, conversing easily Head: normocephalic, atraumatic Eyes: normal inspection, PERRL, conjunctivae normal, anicteric sclerae ENT: external ear and nose normal, oropharynx normal Neck: normal visual inspection, trachea midline, no thyromegaly Respiratory: normal respiratory effort, lungs clear to auscultation, no wheeze, rales, rhonchi. No accessory muscle use Cardiovascular: regular rate, rhythm, no murmur, normal peripheral pulses, no BLE edema. Vessels: no JVD Chest: normal inspection of chest Abdomen/GI: normal bowel sounds, soft, nontender, no hepatosplenomegaly Extremities/Musculoskeletal: no cyanosis or clubbing, extremities motor strength 5/5 Neurologic: PERRL, EOMI, accommodation nl, no face palsy, no dysarthria, CN's II-XI intact bilaterally and moves all extremities Psychiatric: A+Ox3, euthymic affect Skin: no rashes, normal color, warm/dry Discharge Data Allergies Allergy/AdvReac Type Severity Reaction Status Date / Time No Known Allergies Allergy Mild Unverified 02/16/21 00:27 Consultations 02/19/21 17:03 ED Decision to Admit Stat 02/19/21 19:59 Consult Urology Routine 02/23/21 16:05 Burn CD for patient Stat Procedures Performed Operation Date: 02/22/21 09:55 Actual Procedures p Cystoscopy, Right Ureteroscopy, Right Retrograde Pyelogram, Cystogram(Right) - Terrell Vivar MD Ordered Studies 02/20/21 09:30 US renal/blad retro comp Urgent 02/22/21 FL retrograde includes kub Routine 02/16/21 CT abd pelvis IV con only CLINICAL HISTORY: right flank pain, hematuria COMPARISON STUDY: None. TECHNIQUE: A dose lowering technique was utilized adhering to the principles of ALARA. CT DOSE: 697.64 mGy.cm FINDINGS: Lower chest: Mild ill-defined groundglass opacities are seen at inferior aspect of the left upper lobe, superior segment of the left lower lobe as well as within right perihilar region and might represent infectious/postinfectious or inflammatory etiology.. Liver: The contrast-enhanced liver is normal in size and contour. Diffuse decrease in attenuation of liver parenchyma is seen without evidence of focal lesions or intrahepatic biliary dilatation. Gallbladder: Unremarkable. Spleen: Normal in size and attenuation. Pancreas: Unremarkable. Adrenal glands: Unremarkable. Kidneys: There is delayed right nephrogram. The kidneys are normal in size. No hydronephrosis is seen on the left. Mild hydronephrosis and perinephric stranding is seen on the right as well as 6 mm obstructive calculus within proximal aspect of the right ureter. Pelvic viscera: Urinary bladder is decompressed which limits evaluation. Prostate gland is not significantly enlarged. Bilateral fat-containing inguinal hernias are seen. Bowel: Bowel loops are nondilated. Appendix is not well seen. Minimal diverticulosis of sigmoid colon is seen without evidence of diverticulitis. Peritoneum: There is no intraperitoneal free air or abdominal ascites. Vasculature: Abdominal aorta is normal in caliber with scattered calcifications of its wall. Adenopathy: None. Skeletal structures: Degenerative changes of the spine, most prominent at L4-5 and L5-S1 level. IMPRESSION: 1. Mild hydronephrosis and hydroureter is seen on the right with obstructive 6 mm calculus within proximal aspect of the right ureter, asymmetrical stranding of the right perinephric fat and delayed right nephrogram. 2. Hepatic steatosis. 3. Mild diverticulosis of sigmoid colon without diverticulitis. 4. The rest of findings as above. Hospital Course (1) 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: (2) Ureterolithiasis: (3) Acute kidney injury: (4) HTN (hypertension): (5) BPH (benign prostatic hyperplasia): (6) Depression: (7) Tobacco use: This is a 55yo M with a PMH of HTN, dyslipidemia, depression GERD, tobacco use who presents with continued renal colic. Initially came to ED on 02/16/[address] abd/pelvis showing mild hydronephrosis and hydroureter is seen on the right with obstructive 6 mm calculus within proximal aspect of the right ureter. Was discharged home with hope that he would pass stone but has continued to have persistent pain and returned to ED. Renal ultrasound on 02/20 showed mild to moderate right hydroureteronephrosis however stone was not visualized. Patient evaluated by urology on 02/20 who did not recommend surgical intervention at that time, however due to worsening renal function, surgical intervention was then advised. Underwent cystoscopy, right retrograde pyelogram, ureteroscopy, laser lithotripsy/stone treatment, and stent insertion but unfortunately procedure was unsuccessful and urology recommended nephrostomy tube placement with IR. Despite acceptance for transfer at both [facility] and [place], bed availability was limited and transfer was delayed. Was accepted at [facility] for IR intervention on 02/23/21 and was transferred in the evening. Renal function has worsened during admission from 1.21 (was 0.95 on 02/15/21) to 1.63 secondary to right ureterolith iasis with hydroureteronephrosis. Lisinopril was held and Toradol discontinued. Patient has been receiving IV fluids, Flomax and PRN analgesics. No evidence of UTI. Hemodynamically stable at time of discharge to [facility]. Total Time Total Time Spent Total Time Spent (In Minutes): 45 Discharge Plan Discharge Items Patient Disposition: Transfer Acute Care Hospital Reason For Visit: URETERAL STONE Discharge Diagnosis: Right nephrolithiasis JORDAN Activity: Resume your previous activity Non-emergency contact: Primary Care Provider and Urologist Call non-emergency contact if: you have any medication questions Follow-up/Referrals: Mary Stockton DO [Primary Care Provider] - (Date & Time 02/27/2021 11:10 AM Provider Mray Stockton DO Department [facility] ) Diet: Heart Healthy Addtl Attending Provider Instructions: Mr Cruz You came to the hospital with persistent pain from your kidney stone. You also have worsening renal function. Urology tried intervention which was unsuccessful. [facility] and further management. Your lisinopril was stopped for now due to worsening kidney function. May be resumed when your kidney failure resolves. Pending Studies at Discharge: No Stand-Alone Forms: My [facility] Skilled Items Patient informed of condition?: Yes DNR: No Discharge Level of Care: Other Communicable Disease: No Discharge Prognosis: Stable Lines: Peripheral IV Urinary Catheter: Yes Medications and DC Order Prescriptions: New oxybutynin chloride 5 mg Tablet 5 mg PO BID Qty: 30 RF: 0 phenazopyridine [Pyridium] 100 mg Tablet 100 mg PO TID PRN (Reason: pain) Qty: 14 RF: 0 Continued venlafaxine 37.5 mg capsule,extended release 24hr 75 mg PO QAM RF: 0 omeprazole 20 mg capsule,delayed release(DR/EC) 20 mg PO DAILY RF: 0 atorvastatin 20 mg tablet 20 mg PO HS RF: 0 fluticasone propionate 50 mcg/actuation spray,suspension 1 spray INTRANASAL DAILY RF: 0 alfuzosin 10 mg tablet extended release 24 hr 10 mg PO DAILY RF: 0 ondansetron 4 mg tablet,disintegrating 4 mg PO Q6H PRN (Reason: nausea and vomiting) Qty: 14 RF: 0 acetaminophen 325 mg Tablet 650 mg PO QID PRN (Reason: Pain) RF: 0 tamsulosin 0.4 mg capsule 0.4 mg PO QAM RF: 0 oxycodone 5 mg tablet 5 mg PO Q4H PRN (Reason: Pain) RF: 0 Discontinued lisinopril 30 mg tablet 30 mg PO QAM RF: 0 Discharge Orders: Discharge Order (Routine); Ordered 02/23/21 Ordered By: Alisson Marmolejo Admission Data Admit Date/Time: 02/19/21 17:57 Attending Provider: Alisson Marmolejo I. Admit Provider: Stephanie Mueller Primary Care Provider: Mary Stockton Other Providers: Nadiya Andrea ; Andrea José ; Stephanie Mueller ; Sherry Hancock Other Interventions: Discharge Summary Assessment (RN) Last Done: 02/23/21 17:20 Supervising Physician Co-Signing Physician Notes Agree with findings as detailed by Joaquina Gonzalez PA-C Spent 65 mins in discharge planning including exam, med rec, discussion with various providers at transferring and accepting hospitals
[2021-02-23] MEDS ORDERED: MoRPHine SULFATE 2 MG/ML CARP IV STA (18:47)
--- NOTE | 2021-03-03 10:20 | Coding Query ---
CODING QUERY To promote full compliance with coding requirements relating to patient care, provider participation is requested in all cases of consulting solution manager uncertainty. Please assist us with the question(s) below: Coding Question(s): Patient admitted with right ureteral calculus . Underwent cystoscopy with attempted stent placement. OP report stated a small ureteral perforation based on contrast extravasation. Please check below the phrase that describes the ureteral perforation. Thanks for your help! NAPOLEON Lee [facility] Physician's Response(s): The ureteral perforation was not an intraoperative complication ____x____ The ureteral perforation was an intraoperative complication Cannot Clinically correlate if the ureteral perforation is an intraoperative complication Other: Please document: Principal Diagnosis: "that condition established after study, to be chiefly responsible for occasioning the admission of the patient to the hospital for care." Co-Existing Principal Diagnosis: "when two or more diagnoses equally meet the criteria for principal diagnosis as determined by the circumstances of admission, diagnostic work up, and/or therapy provided, and the Alphabetic Index, Tabular List, or another coding guideline does not provide sequencing direction, any one of the diagnoses may be sequenced first." "When the physician has documented what appears to be a current diagnosis in the body of the record, but has not included the diagnosis in the final diagnostic statement, the physician should be asked whether the diagnosis should be added." (Source Coding Clinic 2 QTR90. p3-4) ROSIBEL
== END 2021-02-23 20:32 | disposition short-term general hospital (02) | DRG 694 ==
LOC: ED 12:58 → 3E 17:57 → SUATTDRO 17:57 → 3E 19:28
DX: N13.2 Hydronephrosis with renal and ureteral calculous obstruction; Y92.234 Operating room of hospital as the place of occurrence of the external cause; K21.9 Gastro-esophageal reflux disease without esophagitis; N42.1 Congestion and hemorrhage of prostate; N40.0 Benign prostatic hyperplasia without lower urinary tract symptoms; F17.210 Nicotine dependence, cigarettes, uncomplicated; E78.5 Hyperlipidemia, unspecified; N99.71 Accidental puncture and laceration of a genitourinary system organ or structure during a genitourinary system procedure; N17.9 Acute kidney failure, unspecified; I10 Essential (primary) hypertension

== ENCOUNTER 2022-02-15 18:41 | Inpatient (IN) ==
[2022-02-15] MEDS ORDERED: ACETAMINOPHEN 325 MG TAB PO STA (19:18)
[2022-02-15] MEDS ORDERED: ONDANSETRON 4 MG OD TAB PO STA (19:58)
[2022-02-15 20:21] LABS: Basophils # (auto) 0.03 K/uL (0-0.2); Basophils % (auto) 0.2 %; Eosinophils # (auto) 0.05 K/uL (0-0.50); Eosinophils % (auto) 0.4 %; Hematocrit (blood only) 40.9 % (40.1-51.0); Hemoglobin 14.8 g/dl (14.0-18.0); Immature Granulocytes # (auto) 0.06 K/uL (0.00-0.02); Immature Granulocytes % (auto) 0.5 %; Lymphocytes # (auto) 0.92 K/uL (1.2-3.4); Lymphocytes % (auto) 7.3 %; Mean Corpuscular Hemoglobin 30.9 pg (25.0-34.0); Mean Corpuscular Hgb Conc 36.2 g/dL (32.0-36.0); Mean Corpuscular Volume 85.4 fL (80.0-100.0); Mean Platelet Volume 9.1 fL (9.4-12.4); Monocytes # (auto) 0.93 K/uL (0.24-0.82); Monocytes % (auto) 7.3 %; Neutrophils # (auto) 10.69 K/uL (1.4-6.5); Neutrophils % (auto) 84.3 %; Platelet Count 262 K/uL (130-400); RDW Coefficient of Variation 12.8 % (11.5-14.5); RDW Standard Deviation 39.3 fL (36.4-46.3); Red Blood Count 4.79 M/uL (4.63-6.08); White Blood Count 12.68 K/ul (4.8-10.8)
[2022-02-15 20:29] LABS: Appearance Urine Clear (Clear); Bacteria Urine Automated Negative (Negative); Bilirubin Urine Negative (Negative); Blood Urine 3+ (Negative); Color Urine Yellow; Glucose Urine UA Negative (Negative); Ketones Urine Negative (Negative); Leukocyte Esterase Urine 1+ (Negative); Nitrite Urine Negative (Negative); RBC Urine Automated >30 /hpf (0-4); Specific Gravity Urine 1.023 (1.000-1.030); Urobilinogen Urine Negative (Negative); pH Urine 8.5 (4.5-7.5)
[2022-02-15] MEDS ORDERED: SODIUM CHLORIDE 0.9% 1000ML 1,000 ML IV ONE (20:35)
[2022-02-15 20:36] LABS: Protein Urine Trace (Negative)
[2022-02-15 20:46] LABS: Albumin Globulin Ratio 1.2 (0.9-2); Albumin Level 4.4 gm/dl (3.4-5.0); BUN Creatinine Ratio 15.7 (10-20); Bilirubin,Total 1.1 mg/dl (0.2-1.0); Calcium 9.5 mg/dl (8.5-10.1); Creatinine Clr Calc Pharmacy 88.5 ml/min; Est GFR (African American) 94.1 ml/min; Est GFR (Non-African American) 81.2 ml/min; Globulin 3.7 gm/dl (2.5-4.0); Potassium 3.9 mmol/L (3.5-5.1); Total Protein 8.1 gm/dl (6.0-8.3)
[2022-02-15] MEDS ORDERED: OPTIRAY 350 100ml IV ONE (21:12)
--- NOTE | 2022-02-15 21:20 | Emergency Department Note ---
Impression & Plan Post-operative infection, Fever ED Provider Note NAME: MÓNICA STALLINGS JR AGE: 56 SEX: M : 1965 ARRIVES VIA: Walk-In INFORMANT: Patient, ED PROVIDER(S): Castillo Cid DO CHIEF COMPLAINT: Fever HPI: The patient is a 56-year-old male who presented to the emergency department for fever. The patient is status post transrectal biopsy of his prostate. He started to develop fever and nausea over the last 24 hours. He called his urologist and was referred to the emergency department for further evaluation. The patient has been compliant with his outpatient medications. He has had no nausea or vomiting. The patient denies having any chest pain or difficulty breathing. The patient states he has been worked up for an elevated PSA. He does not have a history of prostate cancer. ROS: See above HPI for pertinent positives & negatives. A total of 10 systems reviewed and were otherwise negative. PAST MEDICAL HISTORY: See Below PAST SURGICAL HISTORY: See Below FAMILY HISTORY: See Below SOCIAL HISTORY: See Below HOME MEDICATIONS: See Below ALLERGIES: See Below VITALS: See Below PHYSICAL EXAMINATION: GENERAL: Patient is awake alert in no acute distress patient is resting comfortably and showing no signs of anxiety EYES: The conjunctivae are clear. The pupils are round and reactive. EARS, NOSE, MOUTH AND THROAT: The nose is without any evidence of any deformity. Mucous membranes are moist. Tongue is midline. NECK: The neck is nontender and supple. RESPIRATORY: Normal respiratory effort is noted there is no evidence of wheezing rhonchi or rales CARDIOVASCULAR: Regular rate and rhythm noted there no murmurs rubs or gallops normal S1 normal S2. GASTROINTESTINAL: The abdomen is soft and mildly distended. There is no specific tenderness guarding rigidity appreciated. MUSCULOSKELETAL/EXTREMITIES: There is no evidence of gross deformity full range of motion is noted in the hips and shoulders. SKIN: There is no obvious evidence of any rash. There are no petechiae, pallor or cyanosis noted. NEUROLOGIC: Patient is awake alert and oriented x3 MEDICAL DECISION MAKING: Patient is a 56-year-old male who presented to the emergency department for an evaluation of fever. The patient is status post transrectal biopsy for prostate cancer rule out. The patient was treated with IV fluids and IV antibiotics in the emergency department. He was reevaluated multiple times. I discussed the patient's laboratory and radiographic studies with him. Given the patient's presentation he was treated for a prostate infection. CT did not show any signs of abscess. I discussed his condition with the on-call urology group. I also discussed his case with the on-call [facility]. They have agreed to evaluate the patient in the emergency department for further management and disposition. Triage Nursing notes reviewed. Prior medical records reviewed Vital Signs: reviewed and remarkable for no significant abnormalities Differential diagnosis: Viral syndrome, otitis, pharyngitis, pneumonia, influenza, meningitis, urinary tract infection, sepsis, bacteremia, as well as other pathologies. ER treatment provided: See below Diagnostics interpreted by me: ECG: EKG was obtained in the emergency department. My interpretation is normal sinus rhythm at 84 bpm. There is no ectopy. There is no acute ST segment abnormalities noted. This was compared to a tracing from February 21, 2021. No changes were noted. Cardiac Monitoring: An order was placed for continuous cardiac monitoring. The monitor shows a rate of 64 bpm with sinus rhythm. Laboratory studies: As stated above and show below. Imaging studies: See below Consultation(s): I discussed this case with Vamsi Patterson who was on for urology. 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 Hyperlipidemia Obesity Right nephrolithiasis Tobacco use Surgical History History of appendectomy History of colonoscopy History of cystoscopy Cystoscopy, right retrograde pyelogram , attempted right ureteral stent placement (02/22/21): LMA igel 5 at [facility] S/P arthroscopy of left shoulder with hardware/tendon repair S/P hardware removal left shoulder screw removed S/P tendon repair right bicep tendon repair S/P urological surgery nephrourethral drain in place (02/24/21 [facility]) Family History Other Heart disease No history of adverse effect of anesthesia Social History Smoking Status: Never smoker Tobacco Type: Smokeless Tobacco (Dip or Chew) Second Hand Exposure: No; Hx Alcohol Use: Yes Alcohol type: beer Alcohol Intake Frequency: Monthly or Less Hx Substance Use: No Preferred Language: Kiswahili Communication Ability: Effective Preparole Counseling Aide Required: No Beliefs That Will Affect Care: None marital status: Single Current Living Situation: Significant Other How many Children do You have: 0 Other Information That Helps Us Care for You: No Feels Safe at Home: Yes Safety Concerns: Feels Safe At This Time Assistive Devices: None Allergies Allergies Allergy/AdvReac Type Severity Reaction Status Date / Time No Known Allergies Allergy Mild Verified 03/20/21 15:15 Home Meds Home Medications Medication Instructions Recorded Confirmed atorvastatin 20 mg tablet 20 mg PO HS 02/16/21 02/16/22 fluticasone propionate 50 1 spray intranasal QAM 02/16/21 02/16/22 mcg/actuation nasal spray,suspension omeprazole 20 mg capsule,delayed 20 mg PO QAM PRN Heartburn 02/16/21 02/16/22 release venlafaxine 37.5 mg 37.5 mg PO QAM 02/16/21 02/16/22 capsule,extended release 24 hr acetaminophen 325 mg tablet 650 mg PO QID PRN Pain 02/19/21 02/16/22 lisinopril 30 mg tablet 30 mg PO QAM 03/03/21 02/16/22 Previous Rx's Medication Instructions Recorded tamsulosin 0.4 mg capsule (Flomax) 0.4 mg PO DAILY #30 caps 03/06/21 Results & Data (ED) Vital Signs Vital Signs - 24 hr 02/15/22 19:14 02/15/22 20:34 02/15/22 22:19 Temperature 38.9 C H 37.4 C 37.3 C Temperature Source Oral Oral Oral Pulse Rate 94 H Pulse Rate [Apical] 82 64 Respiratory Rate 20 18 18 Respiratory Depth Normal Blood Pressure 154/98 H Blood Pressure [Right Arm] 145/90 H 126/77 Blood Pressure Mean 116 Blood Pressure Mean [Right Arm] 108 93 Pulse Oximetry 94 95 96 Oxygen Delivery Method Room Air Room Air Room Air Sepsis Recent Fever Within 48 Hours Yes Sepsis New/Unexplained Change in Mental Status N/A Sepsis Action Taken by Nursing No Action Required Home Medications Current Medication List: was personally reviewed by me Laboratory Data Attestation: I reviewed the patient's lab results. Result diagrams: 02/15/22 19:33 02/15/22 19:33 Lab Results 02/15/22 02/15/22 02/15/22 Range/Units 19:33 19:33 19:33 WBC 12.68 H (4.8-10.8) K/ul RBC 4.79 (4.63-6.08) M/uL Hgb 14.8 (14.0-18.0) g/dl Hct 40.9 (40.1-51.0) % MCV 85.4 (80.0-100.0) fL MCH 30.9 (25.0-34.0) pg MCHC 36.2 H (32.0-36.0) g/dL RDW Std Deviation 39.3 (36.4-46.3) fL RDW Coeff of [place] 12.8 (11.5-14.5) % Plt Count 262 (130-400) K/uL MPV 9.1 L (9.4-12.4) fL Immature Gran % (Auto) 0.5 % Neut % (Auto) 84.3 % Lymph % (Auto) 7.3 % [place] % (Auto) 7.3 % Eos % (Auto) 0.4 % Baso % (Auto) 0.2 % Neut # (Auto) 10.69 H (1.4-6.5) K/uL Lymph # (Auto) 0.92 L (1.2-3.4) K/uL [place] # (Auto) 0.93 H (0.24-0.82) K/uL Eos # (Auto) 0.05 (0-0.50) K/uL Baso # (Auto) 0.03 (0-0.2) K/uL Immature Gran # (Auto) 0.06 H (0.00-0.02) K/uL ESR 34 H (0-20) mm/hr Sodium 131 L (136-145) mmol/L Potassium 3.9 (3.5-5.1) mmol/L Chloride 99 (98-107) mmol/L Carbon Dioxide 25 (21-32) mmol/L Anion Gap 7 (3-11) BUN 16 (6-23) mg/dl Creatinine 1.02 (0.6-1.4) mg/dl Est Cr Clr Drug Dosing 88.5 ml/min Est GFR ( Amer) 94.1 ml/min Est GFR (Non-Af Amer) 81.2 ml/min BUN/Creatinine Ratio 15.7 (10-20) Glucose 97 (70-99(Fasting)) mg/dl Calcium 9.5 (8.5-10.1) mg/dl Magnesium (1.7-2.4) mg/dl Total Bilirubin 1.1 H (0.2-1.0) mg/dl AST 34 (13-39) U/L ALT 61 H (7-52) U/L Alkaline Phosphatase 81 (34-104) U/L C-Reactive Protein (0-0.5) mg/dl Total Protein 8.1 (6.0-8.3) gm/dl Albumin 4.4 (3.4-5.0) gm/dl Globulin 3.7 (2.5-4.0) gm/dl Albumin/Globulin Ratio 1.2 (0.9-2) Procalcitonin (0-0.5) ng/ml Urine Color Urine Appearance (Clear) Urine pH (4.5-7.5) Ur Specific Reader (1.000-1.030) Urine Protein (Negative) Urine Glucose (UA) (Negative) Urine Ketones (Negative) Urine Blood (Negative) Urine Nitrite (Negative) Urine Bilirubin (Negative) Urine Urobilinogen (Negative) Ur Leukocyte Esterase (Negative) Urine WBC (Auto) (0-5) /hpf Urine RBC (Auto) (0-4) /hpf U Hyaline Cast (Auto) (0-5) /lpf U Epithel Cells (Auto) (0-5) /lpf Urine Bacteria (Auto) (Negative) SARS-CoV-2, RNA, NAAT (NEGATIVE) 02/15/22 02/15/22 02/15/22 Range/Units 19:33 19:55 20:04 WBC (4.8-10.8) K/ul RBC (4.63-6.08) M/uL Hgb (14.0-18.0) g/dl Hct (40.1-51.0) % MCV (80.0-100.0) fL MCH (25.0-34.0) pg MCHC (32.0-36.0) g/dL RDW Std Deviation (36.4-46.3) fL RDW Coeff of [place] (11.5-14.5) % Plt Count (130-400) K/uL MPV (9.4-12.4) fL Immature Gran % (Auto) % Neut % (Auto) % Lymph % (Auto) % [place] % (Auto) % Eos % (Auto) % Baso % (Auto) % Neut # (Auto) (1.4-6.5) K/uL Lymph # (Auto) (1.2-3.4) K/uL [place] # (Auto) (0.24-0.82) K/uL Eos # (Auto) (0-0.50) K/uL Baso # (Auto) (0-0.2) K/uL Immature Gran # (Auto) (0.00-0.02) K/uL ESR (0-20) mm/hr Sodium (136-145) mmol/L Potassium (3.5-5.1) mmol/L Chloride (98-107) mmol/L Carbon Dioxide (21-32) mmol/L Anion Gap (3-11) BUN (6-23) mg/dl Creatinine (0.6-1.4) mg/dl Est Cr Clr Drug Dosing ml/min Est GFR ( Amer) ml/min Est GFR (Non-Af Amer) ml/min BUN/Creatinine Ratio (10-20) Glucose (70-99(Fasting)) mg/dl Calcium (8.5-10.1) mg/dl Magnesium (1.7-2.4) mg/dl Total Bilirubin (0.2-1.0) mg/dl AST (13-39) U/L ALT (7-52) U/L Alkaline Phosphatase (34-104) U/L C-Reactive Protein 8.16 H (0-0.5) mg/dl Total Protein (6.0-8.3) gm/dl Albumin (3.4-5.0) gm/dl Globulin (2.5-4.0) gm/dl Albumin/Globulin Ratio (0.9-2) Procalcitonin 0.07 (0-0.5) ng/ml Urine Color Yellow Urine Appearance Clear (Clear) Urine pH 8.5 H (4.5-7.5) Ur Specific Reader 1.023 (1.000-1.030) Urine Protein Trace H (Negative) Urine Glucose (UA) Negative (Negative) Urine Ketones Negative (Negative) Urine Blood 3+ H (Negative) Urine Nitrite Negative (Negative) Urine Bilirubin Negative (Negative) Urine Urobilinogen Negative (Negative) Ur Leukocyte Esterase 1+ H (Negative) Urine WBC (Auto) 10-30 H (0-5) /hpf Urine RBC (Auto) >30 H (0-4) /hpf U Hyaline Cast (Auto) 1-5 (0-5) /lpf U Epithel Cells (Auto) 10-20 H (0-5) /lpf Urine Bacteria (Auto) Negative (Negative) SARS-CoV-2, RNA, NAAT (NEGATIVE) 02/15/22 02/15/22 Range/Units 20:35 20:35 WBC (4.8-10.8) K/ul RBC (4.63-6.08) M/uL Hgb (14.0-18.0) g/dl Hct (40.1-51.0) % MCV (80.0-100.0) fL MCH (25.0-34.0) pg MCHC (32.0-36.0) g/dL RDW Std Deviation (36.4-46.3) fL RDW Coeff of [place] (11.5-14.5) % Plt Count (130-400) K/uL MPV (9.4-12.4) fL Immature Gran % (Auto) % Neut % (Auto) % Lymph % (Auto) % [place] % (Auto) % Eos % (Auto) % Baso % (Auto) % Neut # (Auto) (1.4-6.5) K/uL Lymph # (Auto) (1.2-3.4) K/uL [place] # (Auto) (0.24-0.82) K/uL Eos # (Auto) (0-0.50) K/uL Baso # (Auto) (0-0.2) K/uL Immature Gran # (Auto) (0.00-0.02) K/uL ESR (0-20) mm/hr Sodium (136-145) mmol/L Potassium (3.5-5.1) mmol/L Chloride (98-107) mmol/L Carbon Dioxide (21-32) mmol/L Anion Gap (3-11) BUN (6-23) mg/dl Creatinine (0.6-1.4) mg/dl Est Cr Clr Drug Dosing ml/min Est GFR ( Amer) ml/min Est GFR (Non-Af Amer) ml/min BUN/Creatinine Ratio (10-20) Glucose (70-99(Fasting)) mg/dl Calcium (8.5-10.1) mg/dl Magnesium 1.8 (1.7-2.4) mg/dl Total Bilirubin (0.2-1.0) mg/dl AST (13-39) U/L ALT (7-52) U/L Alkaline Phosphatase (34-104) U/L C-Reactive Protein (0-0.5) mg/dl Total Protein (6.0-8.3) gm/dl Albumin (3.4-5.0) gm/dl Globulin (2.5-4.0) gm/dl Albumin/Globulin Ratio (0.9-2) Procalcitonin (0-0.5) ng/ml Urine Color Urine Appearance (Clear) Urine pH (4.5-7.5) Ur Specific Reader (1.000-1.030) Urine Protein (Negative) Urine Glucose (UA) (Negative) Urine Ketones (Negative) Urine Blood (Negative) Urine Nitrite (Negative) Urine Bilirubin (Negative) Urine Urobilinogen (Negative) Ur Leukocyte Esterase (Negative) Urine WBC (Auto) (0-5) /hpf Urine RBC (Auto) (0-4) /hpf U Hyaline Cast (Auto) (0-5) /lpf U Epithel Cells (Auto) (0-5) /lpf Urine Bacteria (Auto) (Negative) SARS-CoV-2, RNA, NAAT NEGATIVE (NEGATIVE) Administered Medications Lactated Ringer's (Lr) 1,000 mls @ 60 mls/hr IV .[id number] ONE Stop: 02/16/22 16:22 Last Admin: 02/16/22 00:09 Dose: 60 mls/hr Documented By: LH Discontinued Medications Acetaminophen (Acetaminophen 325 Mg Tab) 650 mg PO NOW STA Stop: 02/15/22 19:19 Last Admin: 02/15/22 19:56 Dose: 650 mg Documented By: SM Sodium Chloride (Nss 1000ml) 1,000 mls @ 999 mls/hr IV .Q1H1M ONE Stop: 02/15/22 21:35 Last Infusion: 02/15/22 21:47 Dose: 0 mls/hr Documented By: Admin: 02/15/22 20:44 Dose: 999 mls/hr Documented By: QGV Cefepime HCl (Maxipime) 2,000 mg in 20 mls @ 5 mls/min IV NOW STA; Protocol Stop: 02/15/22 22:30 Last Admin: 02/15/22 22:54 Dose: 5 mls/min Documented By: QGV Vancomycin HCl 2,000 mg/ (Sodium Chloride) 540 mls @ 200 mls/hr IV NOW ONE Stop: 02/16/22 01:08 Last Infusion: 02/16/22 01:36 Dose: 0 mls/hr Documented By: Admin: 02/15/22 22:54 Dose: 200 mls/hr Documented By: QGV Ioversol (Optiray 350 100ml) 90 ml IV ONCE ONE Stop: 02/15/22 21:13 Last Admin: 02/15/22 21:12 Dose: 90 ml Documented By: [facility] Ondansetron HCl (Ondansetron 4 Mg Od Tab) 4 mg PO NOW STA Stop: 02/15/22 19:59 Last Admin: 02/15/22 20:00 Dose: 4 mg Documented By: KEMAR Imaging Data Radiologist's Impression: Abdomen/Pelvis CT 02/15/22 20:[address] WITH IV CONTRAST CT DOSE: 934.17 mGy.cm HISTORY: fever SP prostrate biopsy TECHNIQUE: Multiaxial CT images of the abdomen and pelvis were performed following the use of intravenous contrast. A dose lowering technique was utilized adhering to the principles of ALARA. COMPARISON STUDY: Abdomen and pelvis CT 02/16/2021. FINDINGS: The lung bases are clear. No pneumoperitoneum. No pneumatosis. No suspicious lytic or blastic osseous lesions. Hepatic steatosis. The gallbladder, spleen, adrenal glands, pancreas, and kidneys are unremarkable. No retroperitoneal or pelvic lymphadenopathy. Normal caliber abdominal aorta. The bladder is unremarkable. Small fat-containing bilateral inguinal hernias are noted. Minimal perirectal fat stranding/edema is noted. The prostate gland is mildly enlarged and heterogeneous. This is similar to the prior study. No bowel wall thickening or obstruction. Colonic diverticulosis. No evidence for acute diverticulitis. IMPRESSION: 1. Minimal perirectal edema/fat stranding. This may be due to the recent history of a prostate biopsy. A low-grade proctitis is considered less likely but not entirely excluded. 2. Mildly enlarged and heterogeneous prostate gland, unchanged. 3. No evidence for bowel obstruction. 4. Colonic diverticulosis. No evidence for acute diverticulitis. 5. Hepatic steatosis. ACT 112: Negative or not required by law. Electronically signed by: Isiah Caban M.D. 02/16/2022 7:38 AM Patient: MÓNICA STALLINGS JR (Male) : 63 Status: ER Date: 02/15/22 21:19 Room #: History: PT. REPORTS LOWER ABDOMINAL PAIN AND FEVERPOST PROSTATE BIOPSY APPENIX PRESENT OPTI 350 90 CC Slices: [phone] Priors: Tech: Whitley [place] @ [phone] B Exams: CT ABDOMEN & PELVIS With Contrast Contrast: IV Amt: OPTI 350 90 CC Accession Numbers: [id number] Referring Physician: REFERRED SELF Preliminary Findings Only See Final Report For Complete Findings CT ABDOMEN & PELVIS With Contrast: Comparison: CT abdomen and pelvis 02/16/21 Clear lung bases. Hepatic steatosis. Gallbladder, spleen, pancreas, adrenal glands are unremarkable. Symmetric renal enhancement. No hydronephrosis. Appendix not visualized. No bowel obstruction or inflammation. Scattered diverticula. Mild prostatomegaly. Normal urinary bladder. Fat-containing inguinal hernias. Degenerative changes of the lumbar spine. No acute osseous findings. Radiologist: Anya Mendosa M.D. Study ready at 21:30 and initial results transmitted at 21:57 Discharge Plan Visit Data Chief Complaint: Fever Stated Complaint: BIOPSY PROSTATE, FEVER, POSSIBLE SEPSIS ED Provider: Castillo Cid Discharge Problem: Post-operative infection, Fever Patient Disposition: Admitted As Inpatient Discharge Instructions Interventions: ED Discharge Assessment Last Done: 02/16/22 02:23 : Post-operative infection Qualifiers: Encounter type: initial encounter Postoperative infection type: unspecified type Qualified Code(s): T81.40XA - Infection following a procedure, unspecified, initial encounter Fever Qualifiers: Fever type: unspecified Qualified Code(s): R50.9 - Fever, unspecified
[2022-02-15] MEDS ORDERED: VANCOMYCIN CONSULT ACTIVE PRN (22:27)
[2022-02-15] MEDS ORDERED: VANCOMYCIN HCL 2,000 MG in SODIUM CHLORIDE 0.9% 500 ML IV ONE (22:27)
[2022-02-15] MEDS ORDERED: CEFEPIME 2,000 MG/20 ML VIAL IV STA (22:27)
--- NOTE | 2022-02-15 22:38 | Urology Consultation ---
Date of Consultation February 15, 2022 Assessment & Plan (1) Fever: (2) BPH (benign prostatic hyperplasia): Due to the patient's clinical presentation and his recent prostate biopsies, along with the fact that he developed fever despite utilizing ciprofloxacin we recommend the following: Patient should be admitted to the hospital in the hospital service There is a chance that during the patient's biopsy that there could have been some bacterial seeding that is resistant to the selected antibiotic, Cipro, that was utilized during the time of the patient's procedure Blood culture should be obtained Broad-spectrum antibiotics should be initiated: We recommend utilizing vancomycin and cefepime; antibiotics can be further tailored based on patient's clinical response as well as culture data once available; the duration of antibiotics will be determined based on culture data as well as patient's clinical response Recommend providing hydration measures with intravenous fluids Follow serial labs Following discharge the patient should follow-up with his urologist, Dr. Scooter Bernal, of [facility] urology Supervising Physician Co-Signing Physician Notes Discussed patient with [facility]. Agree with plan. Fever following prostate biopsy. Recommend broad spectrum antibiotics due to concern for bacteremia. History of Present Illness Reason for Consultation: Fever, status post prostate biopsy History of Present Illness This is a 56-year-old male who underwent a transrectal prostate biopsy 2 days ago at [facility] by Dr. Scooter Bernal. Patient notes that he had this biopsy performed as he was found to have an elevated PSA level. The patient notes that prior to his procedure he was given ciprofloxacin and he is continue this medication following his procedure. He believes that they took a total of 15 biopsies. Patient notes that prior to his procedure he did report intermittent bouts of urinary hesitancy as well as a decreased urinary stream but denied any hematuria or dysuria. The patient notes that he was doing well postprocedure however earlier today he developed some generalized myalgias, body aches, and fever. He had some nausea without vomiting. He denies any headache or neck pain. He denies any falls or head injuries. He denies any visual changes. He denies any sore throat. He denies any cough or shortness of breath. Since his procedure he has been tolerating a diet. He denies any dysuria or hematuria. He has not had any ch anastasia in his voiding habits described above. He notes he has been able to move his bowels. He has not noted any blood in his bowel movements. He has not noted any pus or drainage from his rectal area. In the emergency department the patient did have labs and imaging which I independently reviewed. He did have a CT scan of the abdomen pelvis. On the study the patient was noted to have clear lung bases and a normal-appearing gallbladder, spleen, pancreas, and adrenal glands. No hydronephrosis was noted. The appendix was not visualized. There is no evidence of bowel obstruction or bowel inflammation. Mild prostamegaly was noted. Fat-containing inguinal hernias. No other significant findings were noted. Labs include a CBC her white blood cell count was elevated at 12.6. Hemoglobin, hematocrit, and platelet count were all normal. Chemistry profile showed sodium was 131. Potassium, BUN, and creatinine were normal. A urinalysis was performed and it which is negative for nitrites. There is 1+ leukocyte Estrace noted. On the urinalysis there were 10-30 white blood cells per high-power field but no bacteria. In the emergency department the patient was noted to be febrile upon presentation with a temperature of 38.9. He did receive 650 mg of oral Tylenol as well as 1 L of normal saline solution. At the time of my interview the patient was resting comfortably in bed and he was in no distress. By the time of my arrival to bedside the patient was afebrile Allergies Allergy/AdvReac Type Severity Reaction Status Date / Time No Known Allergies Allergy Mild Verified 03/20/21 15:15 Home Medications Medication Instructions Recorded Confirmed Type atorvastatin 20 mg tablet 20 mg PO HS 02/16/21 02/16/22 History fluticasone propionate 50 1 spray intranasal QAM 02/16/21 02/16/22 History mcg/actuation nasal spray,suspension omeprazole 20 mg capsule,delayed 20 mg PO QAM PRN Heartburn 02/16/21 02/16/22 History release venlafaxine 37.5 mg 37.5 mg PO QAM 02/16/21 02/16/22 History capsule,extended release 24 hr acetaminophen 325 mg tablet 650 mg PO QID PRN Pain 02/19/21 02/16/22 History lisinopril 30 mg tablet 30 mg PO QAM 03/03/21 02/16/22 History tamsulosin 0.4 mg capsule (Flomax) 0.4 mg PO DAILY #30 caps 03/06/21 02/16/22 Rx amoxicillin 875 mg-potassium 1 tab PO BID #14 tabs 02/18/22 Rx clavulanate 125 mg tablet Patient History Medical History Acute kidney injury January 2021 Anemia BPH (benign prostatic hyperplasia) Depression Esophageal reflux History of COVID-19 Dx 09/2020 > symptoms at time of: flu-like symptoms, fever, aches, fatigue > resolved HTN (hypertension) 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 Hyperlipidemia Obesity Right nephrolithiasis Tobacco use Surgical History History of appendectomy History of colonoscopy History of cystoscopy Cystoscopy, right retrograde pyelogram , attempted right ureteral stent p lacement (02/22/21): LMA igel 5 at [facility] S/P arthroscopy of left shoulder with hardware/tendon repair S/P hardware removal left shoulder screw removed S/P tendon repair right bicep tendon repair S/P urological surgery nephrourethral drain in place (02/24/21 [facility]) Family History Other Heart disease No history of adverse effect of anesthesia Social History Smoking Status: Never smoker Tobacco Type: Smokeless Tobacco (Dip or Chew) Second Hand Exposure: No; Hx Alcohol Use: Yes Alcohol type: beer Alcohol Intake Frequency: Monthly or Less Hx Substance Use: No Preferred Language: Indonesian Communication Ability: Effective Group Director Required: No Beliefs That Will Affect Care: None marital status: Single Current Living Situation: Significant Other How many Children do You have: 0 Feels Safe at Home: Yes Assistive Devices: None Review of Systems Constitutional: + fever Eyes: no eye pain Ear, Nose, Mouth, Throat: no ear pain Respiratory: no cough and no dyspnea Cardiovascular: no chest pain Gastrointestinal: + nausea; no abdominal pain and no vomiting Genitourinary: no dysuria, no hematuria or no flank pain Musculoskeletal: no back pain Integumentary: no rash Neurologic: no localized weakness Physical Exam Constitutional: well developed and well nourished; no acute distress Eyes: + anicteric sclerae; no conjunctival abnormality ENMT: Ears: no hearing impairment and no external ear abnormality Mouth: no oropharynx abnormality Neck: trachea midline Respiratory: normal respiratory effort; no respiratory distress and no labored breathing Cardiovascular: Rate/Rhythm: regular rate and regular rhythm Gastrointestinal (Abdomen): Abdomen soft, nonrigid, nondistended. There is no tenderness to palpation. Patient's rectum was examined and there is no open areas or sores. There is no drainage of any kind specifically no pus draining from his rectum. The area surrounding his rectum was nonpainful to palpation and there is no crepitus noted in the soft tissue. Musculoskeletal: No calf tenderness. Feet are warm and nonmottled. Skin: no rashes Neurologic: moves all extremities Psychiatric: A+Ox3, euthymic affect Results & Data ([facility]) Vital Signs (Past 12 Hours) Vital Signs Temp Pulse Pulse Resp BP BP Pulse Ox 02/15/22 22:19 37.3 C 64 18 126/77 96 02/15/22 20:34 37.4 C 82 18 145/90 H 95 02/15/22 19:14 38.9 C H 94 H 20 154/98 H 94 O2 Del Method 02/15/22 22:19 Room Air 02/15/22 20:34 Room Air 02/15/22 19:14 Room Air PG Care Time/CCT Total # of Minutes Spent Total Time Spent with Patient: Total time spent is greater than 50% in coordination of care (as documented) at patient's floor/unit and/or counseling patient: Coding Level of Care Code 68835 Inpt Consult Level 5 Diagnoses Fever R50.9 BPH (benign prostatic hyperplasia) N40.0
--- NOTE | 2022-02-15 23:40 | History & Physical Report ---
Date of Service February 15, 2022 Assessment & Plan (1) Sepsis: Plan: Sepsis secondary to complicated UTI Recent prostatic biopsy hypertension, stable hyperlipidemia on statin Rx hx BPH GERD, stable on regimen GMF CS, Vancomycin, Cefepime DVT prophylaxis per Lovenox subcu Full code Text document was generated using [employer] voice recognition software. It may contain grammatical or spelling errors. Kindly contact undersigned for clarification of any documentation item in question. History of Present Illness Chief Complaint: Fever Primary Care Provider: Mary Stockton DO History obtained from patient, family, and records. Medical history significant for hypertension, hyperlipidemia, BPH, GERD, urolithiasis. Last confinement January 2021 for hydronephrosis secondary to ureteral obstruction. Patient underwent outpatient TRUS and prostate needle biopsy at [facility] 2 days ago for elevated PSA. Patient prescribed few days of Cipro postprocedure. Post procedure, patient noted urinary hesitancy without hematuria symptoms. Today, patient had muscle aches, nausea, fever at home. No chest pain, no SOB, no diarrhea symptoms. Vancomycin and cefepime administered at the ER for sepsis. Medical History as above Surgical History : Left shoulder surgery, biceps surgery, urologic procedures, appendectomy, hernia repair Family History : Breast cancer, heart disease, stroke Personal/Social history : Non-smoker, occasional EtOH intake, [employer] business Allergies Allergy/AdvReac Type Severity Reaction Status Date / Time No Known Allergies Allergy Mild Verified 03/20/21 15:15 Home Medications Medication Instructions Recorded Confirmed Type atorvastatin 20 mg tablet 20 mg PO HS 02/16/21 02/16/22 History fluticasone propionate 50 1 spray intranasal QAM 02/16/21 02/16/22 History mcg/actuation nasal spray,suspension omeprazole 20 mg capsule,delayed 20 mg PO QAM PRN Heartburn 02/16/21 02/16/22 History release venlafaxine 37.5 mg 37.5 mg PO QAM 02/16/21 02/16/22 History capsule,extended release 24 hr acetaminophen 325 mg tablet 650 mg PO QID PRN Pain 02/19/21 02/16/22 History lisinopril 30 mg tablet 30 mg PO QAM 03/03/21 02/16/22 History tamsulosin 0.4 mg capsule (Flomax) 0.4 mg PO DAILY #30 caps 03/06/21 02/16/22 Rx Past Med/Surg History Medical History Acute kidney injury January 2021 Anemia BPH (benign prostatic hyperplasia) Depression Esophageal reflux History of COVID-19 Dx 09/2020 > symptoms at time of: flu-like symptoms, fever, aches, fatigue > resolved HTN (hypertension) 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 Hyperlipidemia Obesity Right nephrolithiasis Tobacco use Surgical History History of appendectomy History of colonoscopy History of cystoscopy Cystoscopy, right retrograde pyelogram , attempted right ureteral stent placement (02/22/21): LMA igel 5 at [facility] S/P arthroscopy of left shoulder with hardware/tendon repair S/P hardware removal left shoulder screw removed S/P tendon repair right bicep tendon repair S/P urological surgery nephrourethral drain in place (02/24/21 [facility]) Family History Other Heart disease No history of adverse effect of anesthesia Social History Smoking Status: Never smoker Tobacco Type: Smokeless Tobacco (Dip or Chew) Second Hand Exposure: No; Hx Alcohol Use: Yes Alcohol type: beer Alcohol Intake Frequency: Monthly or Less Hx Substance Use: No Preferred Language: Bahraini Communication Ability: Effective Wire Strander Required: No Beliefs That Will Affect Care: None marital status: Single Current Living Situation: Significant Other How many Children do You have: 0 Other Information That Helps Us Care for You: No Feels Safe at Home: Yes Safety Concerns: Feels Safe At This Time Assistive Devices: None Review of Systems Review of Systems: As per HPI, all other systems reviewed and negative Physical Exam Physical Exam: GENERAL: Comfortable, pleasant, obese, no respiratory distress SKIN: Normal color, warm HEENT: Venturia palpebral conjunctivae, no ptosis, dry buccal mucosa NECK : Supple, short neck, no tenderness CHEST : CTA, no tenderness HEART : RRR, no obvious murmurs ABDOMEN: Some distention, nontender EXTREMITIES : No LE swelling/tenderness, no other conspicuous deformities noted NEUROLOGIC : Coherent, no facial asymmetry, no other gross focality Results & Data Results & Data ([facility]) Vital Signs (Past 12 Hours) Vital Signs Temp Pulse Pulse Resp BP BP Pulse Ox 02/15/22 22:19 37.3 C 64 18 126/77 96 02/15/22 20:34 37.4 C 82 18 145/90 H 95 02/15/22 19:14 38.9 C H 94 H 20 154/98 H 94 O2 Del Method 02/15/22 22:19 Room Air 02/15/22 20:34 Room Air 02/15/22 19:14 Room Air Laboratory Results Laboratory Results WBC 12.68 K/ul (4.8-10.8) H 02/15/22 19:33 RBC 4.79 M/uL (4.63-6.08) 02/15/22 19:33 Hgb 14.8 g/dl (14.0-18.0) 02/15/22 19:33 Hct 40.9 % (40.1-51.0) 02/15/22 19:33 MCV 85.4 fL (80.0-100.0) 02/15/22 19:33 MCH 30.9 pg (25.0-34.0) 02/15/22 19:33 MCHC 36.2 g/dL (32.0-36.0) H 02/15/22 19:33 RDW Std Deviation 39.3 fL (36.4-46.3) 02/15/22 19:33 RDW Coeff of [place] 12.8 % (11.5-14.5) 02/15/22 19:33 Plt Count 262 K/uL (130-400) 02/15/22 19:33 MPV 9.1 fL (9.4-12.4) L 02/15/22 19:33 Immature Gran % (Auto) 0.5 % 02/15/22 19:33 Neut % (Auto) 84.3 % 02/15/22 19:33 Lymph % (Auto) 7.3 % 02/15/22 19:33 [place] % (Auto) 7.3 % 02/15/22 19:33 Eos % (Auto) 0.4 % 02/15/22 19:33 Baso % (Auto) 0.2 % 02/15/22 19:33 Neut # (Auto) 10.69 K/uL (1.4-6.5) H 02/15/22 19:33 Lymph # (Auto) 0.92 K/uL (1.2-3.4) L 02/15/22 19:33 [place] # (Auto) 0.93 K/uL (0.24-0.82) H 02/15/22 19:33 Eos # (Auto) 0.05 K/uL (0-0.50) 02/15/22 19:33 Baso # (Auto) 0.03 K/uL (0-0.2) 02/15/22 19:33 Immature Gran # (Auto) 0.06 K/uL (0.00-0.02) H 02/15/22 19:33 ESR 34 mm/hr (0-20) H 02/15/22 19:33 Sodium 131 mmol/L (136-145) L 02/15/22 19:33 Potassium 3.9 mmol/L (3.5-5.1) 02/15/22 19:33 Chloride 99 mmol/L (98-107) 02/15/22 19:33 Carbon Dioxide 25 mmol/L (21-32) 02/15/22 19:33 Anion Gap 7 (3-11) 02/15/22 19:33 BUN 16 mg/dl (6-23) 02/15/22 19:33 Creatinine 1.02 mg/dl (0.6-1.4) 02/15/22 19:33 Est Cr Clr Drug Dosing 88.5 ml/min 02/15/22 19:33 Est GFR ( Amer) 94.1 ml/min 02/15/22 19:33 Est GFR (Non-Af Amer) 81.2 ml/min 02/15/22 19:33 BUN/Creatinine Ratio 15.7 (10-20) 02/15/22 19:33 Glucose 97 mg/dl (70-99(Fasting)) 02/15/22 19:33 Calcium 9.5 mg/dl (8.5-10.1) 02/15/22 19:33 Total Bilirubin 1.1 mg/dl (0.2-1.0) H 02/15/22 19:33 AST 34 U/L (13-39) 02/15/22 19:33 ALT 61 U/L (7-52) H 02/15/22 19:33 Alkaline Phosphatase 81 U/L (34-104) 02/15/22 19:33 C-Reactive Protein 8.16 mg/dl (0-0.5) H 02/15/22 19:33 Total Protein 8.1 gm/dl (6.0-8.3) 02/15/22 19:33 Albumin 4.4 gm/dl (3.4-5.0) 02/15/22 19:33 Globulin 3.7 gm/dl (2.5-4.0) 02/15/22 19: Albumin/Globulin Ratio 1.2 (0.9-2) 02/15/22 19:33 Procalcitonin 0.07 ng/ml (0-0.5) 02/15/22 19:55 Urine Color Yellow 02/15/22 20:04 Urine Appearance Clear (Clear) 02/15/22 20:04 Urine pH 8.5 (4.5-7.5) H 02/15/22 20:04 Ur Specific [place] 1.023 (1.000-1.030) 02/15/22 20:04 Urine Protein Trace (Negative) H 02/15/22 20:04 Urine Glucose (UA) Negative (Negative) 02/15/22 20:04 Urine Ketones Negative (Negative) 02/15/22 20:04 Urine Blood 3+ (Negative) H 02/15/22 20:04 Urine Nitrite Negative (Negative) 02/15/22 20:04 Urine Bilirubin Negative (Negative) 02/15/22 20:04 Urine Urobilinogen Negative (Negative) 02/15/22 20:04 Ur Leukocyte Esterase 1+ (Negative) H 02/15/22 20:04 Urine WBC (Auto) 10-30 /hpf (0-5) H 02/15/22 20:04 Urine RBC (Auto) >30 /hpf (0-4) H 02/15/22 20:04 U Hyaline Cast (Auto) 1-5 /lpf (0-5) 02/15/22 20:04 U Epithel Cells (Auto) 10-20 /lpf (0-5) H 02/15/22 20:04 Urine Bacteria (Auto) Negative (Negative) 02/15/22 20:04 SARS-CoV-2, RNA, NAAT NEGATIVE (NEGATIVE) 02/15/22 20:[address] abdomen pelvis initial read: Clear lung bases. Hepatic steatosis. Gallbladder, spleen, pancreas, adrenal glands are unremarkable. Symmetric renal enhancement. No hydronephrosis. Appendix not visualized. No bowel obstruction or inflammation. Scattered diverticula. Mild prostatomegaly. Normal urinarybladder. Fat-containing inguinal hernias. Degenerative changes of the lumbar spine. No acute osseous findings
[2022-02-15] MEDS ORDERED: LACTATED RINGER'S 1,000 ML IV ONE (23:43)
[2022-02-16] MEDS ORDERED: PROMETHAZINE HCL 12.5 MG in SODIUM CHLORIDE 0.9% 50 ML IV PRN (02:55)
[2022-02-16] MEDS ORDERED: oxyCODONE HCL IR 5 MG TAB (IMMEDIATE RELEASE) PO PRN (02:55)
[2022-02-16] MEDS ORDERED: PANTOprazole 40 MG TAB PO PRN (07:20)
--- NOTE | 2022-02-16 07:40 | CT Scan Report ---
ABDOMEN AND PELVIS CT WITH IV CONTRAST CT DOSE: 934.17 mGy.cm HISTORY: fever SP prostrate biopsy TECHNIQUE: Multiaxial CT images of the abdomen and pelvis were performed following the use of intrave nous contrast. A dose lowering technique was utilized adhering to the principles of ALARA. COMPARISON STUDY: Abdomen and pelvis CT 02/16/2021. FINDINGS: The lung bases are clear. No pneumoperitoneum. No pneumatosis. No suspicious lytic or blast ic osseous lesions. Hepatic steatosis. The gallbladder, spleen, adrenal glands, pancreas, and kidneys are unremarkable. No retroperitoneal or pelvic lymphadenopathy. Normal caliber abdominal aorta. The bladder is unremarkable. Small fat-containing bilateral inguinal hernias are noted. Minimal perirecta l fat stranding/edema is noted. The prostate gland is mildly enlarged and heterogeneous. This is salma lar to the prior study. No bowel wall thickening or obstruction. Colonic diverticulosis. No evidence for acute diverticulitis. IMPRESSION: 1. Minimal perirectal edema/fat stranding. This may be due to the recent history of a prostate biopsy . A low-grade proctitis is considered less likely but not entirely excluded. 2. Mildly enlarged and heterogeneous prostate gland, unchanged. 3. No evidence for bowel obstruction. 4. Colonic diverticulosis. No evidence for acute diverticulitis. 5. Hepatic steatosis. ACT 112: Negative or not required by law. Electronically signed by: Isiah Caban M.D. 02/16/2022 7:38 AM
[2022-02-16] MEDS ORDERED: VANCOMYCIN HCL 750 MG in SODIUM CHLORIDE 0.9% 250 ML IV SCH (08:00)
[2022-02-16 08:30] LABS: Basophils # (auto) 0.05 K/uL (0-0.2); Basophils % (auto) 0.5 %; Eosinophils # (auto) 0.07 K/uL (0-0.50); Eosinophils % (auto) 0.7 %; Hematocrit (blood only) 37.9 % (40.1-51.0); Immature Granulocytes # (auto) 0.03 K/uL (0.00-0.02); Immature Granulocytes % (auto) 0.3 %; Lymphocytes # (auto) 1.21 K/uL (1.2-3.4); Lymphocytes % (auto) 11.9 %; Mean Corpuscular Hemoglobin 30.4 pg (25.0-34.0); Mean Corpuscular Hgb Conc 34.3 g/dL (32.0-36.0); Mean Corpuscular Volume 88.6 fL (80.0-100.0); Mean Platelet Volume 9.2 fL (9.4-12.4); Monocytes # (auto) 0.96 K/uL (0.24-0.82); Monocytes % (auto) 9.5 %; Neutrophils # (auto) 7.82 K/uL (1.4-6.5); Neutrophils % (auto) 77.1 %; Platelet Count 225 K/uL (130-400); RDW Standard Deviation 41.6 fL (36.4-46.3); Red Blood Count 4.28 M/uL (4.63-6.08); White Blood Count 10.14 K/ul (4.8-10.8)
[2022-02-16 08:48] LABS: BUN Creatinine Ratio 15.6 (10-20); Calcium 8.8 mg/dl (8.5-10.1); Creatinine Clr Calc Pharmacy 93.8 ml/min; Est GFR (African American) 101.3 ml/min; Est GFR (Non-African American) 87.4 ml/min
[2022-02-16] MEDS: TAMSULOSIN HCL 0.4 MG CAP PO SCH (09:00)
[2022-02-16] MEDS: FLUTICASONE PROPIONATE NA SPR 16 GM BTL SCH (09:00)
[2022-02-16] MEDS: lisinopril 10 MG TAB PO SCH (09:01)
[2022-02-16] MEDS: VENLAFAXINE HCL XR 37.5 MG CAPXR PO SCH (09:01)
--- NOTE | 2022-02-16 09:03 | XRay Report ---
XR chest 1V portable HISTORY: Fever COMPARISON: Chest 02/21/2021. FINDINGS: No pneumothorax. No pleural effusions. No new focal lung consolidations to suggest a pneumo angely. No evidence for pulmonary edema. The heart is normal in size. Stable small linear perihilar dens ities again noted which favor scarring given the long-term stability. There are postoperative changes within the left shoulder. IMPRESSION: No significant change compared to the prior study. No acute process. ACT 112: Negative or not required by law. Electronically signed by: Isiah Caban M.D. 02/16/2022 9:02 AM
[2022-02-16] MEDS: ENOXAPARIN INJ 40 MG/0.4 ML SYR SQ SCH (09:04)
--- NOTE | 2022-02-16 09:34 | Pharmacy Report ---
Pharmacy PK ABX Note - Date of Service February 16, 2022 - Assessment and Plan Assessment 56 year old M receiving vancomycin/cefepime for treatment of possible urinary tract infection/seeding from recent procedure, cultures pending. Patient was on ciprofloxacin prior to procedure. Plan Vancomycin * Loading dose: 2000 mg IV x 1 * Maintenance dose: 1250 mg IV every 12 hours * Regimen is predicted to achieve target AUC/NIYA of 400-600 mg/L.hr * Random level to be ordered 02/18 if continued. Pharmacy will continue to follow and will adjust dose/frequency as necessary. Thank you. Pharmacy has transitioned to AUC monitoring for vancomycin. AUC/NIYA is the preferred PK/PD target and is associated with decreased risk of nephrotoxicity compared to traditional trough targets.
--- NOTE | 2022-02-16 10:12 | Urology Progress Note ---
Date of Service February 16, 2022 Assessment & Plan (1) Fever: (2) Hx of prostate biopsy: Plan 56yo M who underwent a prostate biopsy [address] [facility] for elevated PSA admitted with generalized myalgias, body aches, and fever despite being on ciprofloxacin. -Feeling better this morning. -Afebrile and hemodynamically stable. -Labs reviewed- WBC 10.14 (12.68 yesterday), Creatinine normal. -Urine and blood cultures are pending. -On IV Vanco and Cefepime, antibiotics can be further tailored based on patient's clinical response as well as culture data once available. -Voiding without issue, continue to monitor. -Continue supportive care and antibiotic therapy. -Patient follows with Dr. Bernal of [facility] urology and plans to continue follow-up with him upon discharge. -Urology will sign-off for now. Please contact us with any further questions, concerns, or changes in patient status. Admission and Anticipated Discharge Date Admission Date: February 15, 2022 Supervising Physician Co-Signing Physician Notes I have discussed Mr. Cruz's case with SAM Barajas and agree with the above documentation. Continue to treat with broad-spectrum antibiotics until cultures become available. He can follow-up as an outpatient with his primary urologist. Subjective Patient examined at bedside this AM. Awake, resting in bed on arrival. No acute distress. Reports feeling better today than yesterday. No fevers or chills. No nausea or vomiting. Tolerating diet. Voiding without issue. Denies hematuria or dysuria. Denies any abdominal, flank, or back pain. Review of Systems Constitutional: as per Subjective / HPI Gastrointestinal: as per Subjective / HPI Genitourinary: + as per Subjective / HPI Physical Exam Constitutional: cooperative and comfortable; no acute distress Respiratory: normal respiratory effort; no respiratory distress Skin: No visible rashes or lesions Neurologic: awake Psychiatric: A+Ox3, euthymic affect Results & [facility] ([facility]) Vital Signs (Past 12 Hours) Vital Signs Temp Pulse Pulse Resp BP Pulse Ox O2 Del Method 02/16/22 07:00 36.9 C 57 L 16 138/77 97 02/16/22 03:34 36.8 C 66 18 138/78 96 Room Air 02/16/22 03:24 36.8 C 66 18 138/78 96 Room Air 02/16/22 02:31 36.7 C 85 18 139/84 92 Room Air 02/16/22 01:42 37.2 C 60 18 141/81 H 96 Room Air 02/15/22 22:19 37.3 C 64 18 126/77 96 Room Air PG Care Time/CCT Total # of Minutes Spent Total Time Spent with Patient: Total time spent is greater than 50% in coordination of care (as documented) at patient's floor/unit and/or counseling patient: Coding Level of Care Code 14833 Subseq Hosp Care Lvl 2 Diagnoses Fever R50.9 Fever type: unspecified Hx of prostate biopsy Z98.890 (1) Fever Fever type: unspecified Qualified Code(s): R50.9 - Fever, unspecified
[2022-02-16] MEDS: CEFEPIME 2,000 MG in SYRINGE 0 ML IV SCH ×2 (10:23→21:29)
[2022-02-16] MEDS: ACETAMINOPHEN 325 MG TAB PO PRN ×2 (10:33→19:53)
[2022-02-16] MEDS ORDERED: ACETAMINOPHEN 500 MG TAB PO STA (11:05)
--- NOTE | 2022-02-16 12:41 | Electrocardiogram Report ---
Test Reason : Blood Pressure : / mmHG Vent. Rate : 084 BPM Atrial Rate : 084 BPM P-R Int : 152 ms QRS Dur : 084 ms QT Int : 358 ms P-R-T Axes : 035 -21 009 degrees QTc Int : 423 ms Normal sinus rhythm Minimal voltage criteria for LVH, may be normal variant Borderline ECG When compared with ECG of 21-FEB-2021 15:07, No significant change was found Confirmed by Dorian Torres ([id number]) on 02/16/2022 12:41:10 PM Referred By: REFERRED SELF Confirmed By:Dorian Torres
--- NOTE | 2022-02-16 15:13 | Hospitalist Progress Note ---
Date of Service February 16, 2022 Assessment & Plan (1) Sepsis: Plan Sepsis secondary to complicated UTI Recent prostatic biopsy on 02/[address] Bernal Patient afebrile since 02/15. Remains hemodynamically stable Possible postprocedural infection after prostate biopsy, a complication of care Evaluated by urology here-plan to continue broad-spectrum antibiotics (vanco, cefepime) until cultures result. Follow-up with Dr. Bernal as an outpatient upon discharge Urine, blood culture pending Hypertension Normotensive. Continue home lisinopril Hyperlipidemia Continue statin Hx BPH Continue Flomax Depression Continue venlafaxine DVT Ppx: SQ Lovenox Code status: FULL PCP: Kath Dispo: Admitted to med/surg Admission and Anticipated Discharge Date Admission Date: February 15, 2022 Supervising Physician Co-Signing Physician Notes Attending addendum: The patient was seen and examined in medical floor He is a status post prostate biopsy this with appropriate antibiotic coverage for procedure Has been having fever and chills on POD1 and the patient is here in the hospital with more symptoms Has been feeling much better and denies any significant symptom On examination Lying in bed without any acute distress Hemodynamically stable and afebrile Chest-clear to auscultate bilaterally Heart-S1-S2, regular Abdomen-benign Extremities-negative for any edema His admission labs, imaging studies and medications reviewed Possible postprocedural infection after prostate biopsy, a complication of care We will wait for the blood culture to come back Agree with assessment and plan as outlined above by SCOTTY Bhatt Dr Subjective Patient seen and examined in 363 bed 1 in follow-up for fever and history of recent prostate biopsy. Since arrival, patient has been afebrile and comfortable. Denies any urinary symptoms. No chills, chest pain, shortness of breath, nausea, vomiting, abdominal pain, dysuria, diarrhea or constipation. Review of Systems Review of Systems: As per HPI, all other systems reviewed and negative Physical Exam Physical Exam: Gen: WD/WN, NAD, sitting in bed, A&Ox3 HEENT: Normocephalic, atraumatic, conjunctivae moist, sclerae anicteric, mucous membranes moist Lung: Clear to Auscultation bilaterally, no wheezes/rales/rhonchi Heart: Regular rate, regular rhythm, no murmurs, rubs, or gallops Abdomen: Soft, NT, ND +BS x 4 Extremities: no edema Skin: Warm, no rash Results & Data Results & Data ([facility]) Vital Signs (Past 12 Hours) Vital Signs Temp Pulse Resp BP Pulse Ox O2 Del Method 02/16/22 07:00 36.9 C 57 L 16 138/77 97 02/16/22 03:34 36.8 C 66 18 138/78 96 Room Air 02/16/22 03:24 36.8 C 66 18 138/78 96 Room Air Laboratory Results Short CBC 02/15/22 02/16/22 Range/Units 19:33 07:22 WBC 12.68 H 10.14 (4.8-10.8) K/ul Hgb 14.8 13.0 L (14.0-18.0) g/dl Hct 40.9 37.9 L (40.1-51.0) % Plt Count 262 225 (130-400) K/uL BMP 02/15/22 02/16/22 19:33 07:22 Sodium 131 L 133 L Potassium 3.9 4.0 Chloride 99 103 Carbon Dioxide 25 26 BUN 16 15 Creatinine 1.02 0.96 Glucose 97 91 Calcium 9.5 8.8 Liver Function 02/15/22 Range/Units 19:33 Total Bilirubin 1.1 H (0.2-1.0) mg/dl AST 34 (13-39) U/L ALT 61 H (7-52) U/L Alkaline Phosphatase 81 (34-104) U/L Albumin 4.4 (3.4-5.0) gm/dl Urine 02/15/22 Range/Units 20:04 Urine Color Yellow Urine Appearance Clear (Clear) Urine pH 8.5 H (4.5-7.5) Ur Specific [place] 1.023 (1.000-1.030) Urine Protein Trace H (Negative) Urine Glucose (UA) Negative (Negative) Diagnostic Findings Chest X-Ray 02/15/22 19:18 XR chest 1V portable HISTORY: Fever COMPARISON: Chest 02/21/2021. FINDINGS: No pneumothorax. No pleural effusions. No new focal lung consolidations to suggest a pneumonia. No evidence for pulmonary edema. The heart is normal in size. Stable small linear perihilar densities again noted which favor scarring given the long-term stability. There are postoperative changes within the left shoulder. IMPRESSION: No significant change compared to the prior study. No acute process. ACT 112: Negative or not required by law. Electronically signed by: Isiah Caban M.D. 02/16/2022 9:02 AM Abdomen/Pelvis CT 02/15/22 20:[address] WITH IV CONTRAST CT DOSE: 934.17 mGy.cm HISTORY: fever SP prostrate biopsy TECHNIQUE: Multiaxial CT images of the abdomen and pelvis were performed following the use of intravenous contrast. A dose lowering technique was utilized adhering to the principles of ALARA. COMPARISON STUDY: Abdomen and pelvis CT 02/16/2021. FINDINGS: The lung bases are clear. No pneumoperitoneum. No pneumatosis. No suspicious lytic or blastic osseous lesions. Hepatic steatosis. The gallbladder, spleen, adrenal glands, pancreas, and kidneys are unremarkable. No retroperitoneal or pelvic lymphadenopathy. Normal caliber abdominal aorta. The bladder is unremarkable. Small fat-containing bilateral inguinal hernias are noted. Minimal perirectal fat stranding/edema is noted. The prostate gland is mildly enlarged and heterogeneous. This is similar to the prior study. No bowel wall thickening or obstruction. Colonic diverticulosis. No evidence for acute diverticulitis. IMPRESSION: 1. Minimal perirectal edema/fat stranding. This may be due to the recent history of a prostate biopsy. A low-grade proctitis is considered less likely but not entirely excluded. 2. Mildly enlarged and heterogeneous prostate gland, unchanged. 3. No evidence for bowel obstruction. 4. Colonic diverticulosis. No evidence for acute diverticulitis. 5. Hepatic steatosis. ACT 112: Negative or not required by law. Electronically signed by: Isiah Caban M.D. 02/16/2022 7:38 AM
[2022-02-16] MEDS: VANCOMYCIN HCL 1,250 MG in SODIUM CHLORIDE 0.9% 250 ML IV SCH (18:17)
[2022-02-16] MEDS: ATORVASTATIN 20 MG TAB PO SCH (21:29)
[2022-02-17] MEDS: VANCOMYCIN HCL 1,250 MG in SODIUM CHLORIDE 0.9% 250 ML IV SCH (05:54)
[2022-02-17 07:21] LABS: Hematocrit (blood only) 39.5 % (40.1-51.0); Hemoglobin 13.6 g/dl (14.0-18.0); Mean Corpuscular Hemoglobin 30.7 pg (25.0-34.0); Mean Corpuscular Hgb Conc 34.4 g/dL (32.0-36.0); Mean Corpuscular Volume 89.2 fL (80.0-100.0); Platelet Count 201 K/uL (130-400); RDW Coefficient of Variation 12.8 % (11.5-14.5); RDW Standard Deviation 41.9 fL (36.4-46.3); Red Blood Count 4.43 M/uL (4.63-6.08); White Blood Count 6.15 K/ul (4.8-10.8)
[2022-02-17 07:46] LABS: BUN Creatinine Ratio 21.3 (10-20); Calcium 8.7 mg/dl (8.5-10.1); Creatinine Clr Calc Pharmacy 101.2 ml/min; Est GFR (Non-African American) 94.9 ml/min; Potassium 4.1 mmol/L (3.5-5.1)
[2022-02-17] MEDS: ENOXAPARIN INJ 40 MG/0.4 ML SYR SQ SCH (08:38)
[2022-02-17] MEDS: FLUTICASONE PROPIONATE NA SPR 16 GM BTL SCH (08:38)
[2022-02-17] MEDS: VENLAFAXINE HCL XR 37.5 MG CAPXR PO SCH (08:39)
[2022-02-17] MEDS: lisinopril 10 MG TAB PO SCH (08:39)
[2022-02-17] MEDS: TAMSULOSIN HCL 0.4 MG CAP PO SCH (08:39)
[2022-02-17] MEDS: CEFEPIME 2,000 MG in SYRINGE 0 ML IV SCH (10:38)
[2022-02-17] MEDS: AMPICILLIN/SULBACTAM SOD 3,000 MG in 0.9 % SODIUM CHLORIDE 100 ML IV SCH ×2 (16:09→21:03)
[2022-02-17] MEDS: ACETAMINOPHEN 325 MG TAB PO PRN (16:14)
--- NOTE | 2022-02-17 16:40 | Hospitalist Progress Note ---
Date of Service February 17, 2022 Assessment & Plan (1) Sepsis: Plan Sepsis secondary to complicated UTI Recent transrectal prostatic biopsy on 02/[address] Bernal Patient afebrile since 02/15. Remains hemodynamically stable Possible postprocedural infection after prostate biopsy, a complication of care Evaluated by urology here-plan to continue broad-spectrum antibiotics (vanco, cefepime) until cultures result. Follow-up with Dr. Bernal as an outpatient upon discharge Urine, blood culture pending-have been negative so far The patient has been feeling a lot better but is still having sweating Will change antibiotics to IV Unasyn to cover colonic pathogens Plan to discharge the patient on oral Augmentin tomorrow Hypertension Normotensive. Continue home lisinopril Blood pressure remains on the upper side and 158/90 Hyperlipidemia Continue statin Hx BPH Continue Flomax Depression Continue venlafaxine DVT Ppx: SQ Lovenox Code status: FULL PCP: Kath Dispo: Admitted to med/surg Likely discharge tomorrow Admission and Anticipated Discharge Date Admission Date: February 15, 2022 Subjective Patient seen and examined in 363 bed 1 in follow-up for fever and history of recent prostate biopsy. Since arrival, patient has been afebrile and comfortable. Denies any urinary symptoms. No chills, chest pain, shortness of breath, nausea, vomiting, abdominal pain, dysuria, diarrhea or constipation. 02/17/2022 The patient was seen and examined in medical floor Is still complains to have sweating Denies any fever and or chills and denies any urinary symptoms Review of Systems Review of Systems: All systems reviewed and are unremarkable except as noted below Physical Exam Physical Exam: Lying in bed comfortably Constitutional: well developed, well nourished, + ill appearing and + obese Eyes: PERRL, conjunctivae normal, anicteric sclerae ENMT: external ear and nose normal, oropharynx normal Neck: trachea midline, no thyromegaly Respiratory: no respiratory distress Auscultation: lungs clear to auscultation bilaterally Cardiovascular: Rate/Rhythm: regular rate and regular rhythm; not tachycardic Heart Sounds: normal S1 and normal S2; no murmur Extremities: no edema Gastrointestinal (Abdomen): Inspection/Auscultation: normal bowel sounds; abdomen not distended Percussion/Palpation: abdomen soft; abdomen nontender Musculoskeletal: No acute arthritis in any joint Neurologic: normal touch/pain/proprioception and moves all extremities; no focal motor deficits Psychiatric: A+Ox3, euthymic affect Lymphatic: no cervical or axillary lymphadenopathy Results & Data Results & Data ([facility]) Vital Signs (Past 12 Hours) Vital Signs Temp Pulse Pulse Resp BP Pulse Ox O2 Del Method 02/17/22 15:35 36.7 C 65 20 158/90 H 97 Room Air 02/17/22 05:52 36.6 C 57 L 14 121/80 95 Room Air Laboratory Results Short CBC 02/17/22 Range/Units 06:41 WBC 6.15 (4.8-10.8) K/ul Hgb 13.6 L (14.0-18.0) g/dl Hct 39.5 L (40.1-51.0) % Plt Count 201 (130-400) K/uL BMP 02/17/22 06:41 Sodium 136 Potassium 4.1 Chloride 105 Carbon Dioxide 27 BUN 19 Creatinine 0.89 Glucose 89 Calcium 8.7 Medications Administered Current Inpatient Medications Acetaminophen (Acetaminophen 325 Mg Tab) 650 mg PO Q4H PRN PRN Reason: pain/fever Stop: 03/18/22 02:54 Last Admin: 02/17/22 16:14 Dose: 650 mg Atorvastatin Calcium (Atorvastatin 20 Mg Tab) 20 mg PO HS [facility] Stop: 03/18/22 20:59 Last Admin: 02/16/22 21:29 Dose: 20 mg Enoxaparin Sodium (Enoxaparin Inj 40 Mg/0.4 Ml Syr) 40 mg SQ QAM [facility] Stop: 03/18/22 08:59 Last Admin: 02/17/22 08:38 Dose: Not Given Fluticasone Propionate (Fluticasone Propionate Na Spr 16 Gm Btl) 1 sprays NA QAM TIKI Stop: 03/18/22 08:59 Last Admin: 02/17/22 08:38 Dose: 1 sprays Promethazine HCl 12.5 mg/ (Sodium Chloride) 50.5 mls @ 202 mls/hr IV Q6H PRN PRN Reason: Nausea And Vomiting Stop: 03/18/22 02:54 Ampicillin Sodium/Sulbactam Sodium 3,000 mg/ Sodium Chloride 108 mls @ 200 mls/hr IV Q6H TIKI; Protocol Stop: 02/21/22 13:44 Last Admin: 02/17/22 16:09 Dose: 200 mls/hr Lisinopril (Lisinopril 10 Mg Tab) 30 mg PO QAM TIKI Stop: 03/18/22 08:59 Last Admin: 02/17/22 08:39 Dose: 30 mg Oxycodone HCl (Oxycodone Hcl Ir 5 Mg Tab (Immediate Release)) 5 - 10 mg PO QID PRN PRN Reason: Pain Stop: 03/02/22 02:54 Pantoprazole Sodium (Pantoprazole 40 Mg Tab) 40 mg PO QAM PRN PRN Reason: Heartburn Stop: 03/18/22 07:19 Tamsulosin HCl (Tamsulosin Hcl 0.4 Mg Cap) 0.4 mg PO DAILY TIKI Stop: 03/18/22 08:59 Last Admin: 02/17/22 08:39 Dose: 0.4 mg Venlafaxine HCl (Venlafaxine Hcl Xr 37.5 Mg Capxr) 37.5 mg PO QAM TIKI Stop: 03/18/22 08:59 Last Admin: 02/17/22 08:39 Dose: 37.5 mg
[2022-02-17] MEDS: ATORVASTATIN 20 MG TAB PO SCH (21:04)
[2022-02-18] MEDS ORDERED: VANCOMYCIN LEVEL ONE (04:30)
[2022-02-18] MEDS: AMPICILLIN/SULBACTAM SOD 3,000 MG in 0.9 % SODIUM CHLORIDE 100 ML IV SCH ×2 (05:10→10:18)
[2022-02-18 08:01] LABS: Basophils # (auto) 0.05 K/uL (0-0.2); Basophils % (auto) 0.9 %; Eosinophils # (auto) 0.35 K/uL (0-0.50); Eosinophils % (auto) 6.5 %; Hematocrit (blood only) 39.6 % (40.1-51.0); Hemoglobin 13.9 g/dl (14.0-18.0); Immature Granulocytes # (auto) 0.03 K/uL (0.00-0.02); Immature Granulocytes % (auto) 0.6 %; Lymphocytes # (auto) 1.08 K/uL (1.2-3.4); Lymphocytes % (auto) 20.1 %; Mean Corpuscular Hemoglobin 30.4 pg (25.0-34.0); Mean Corpuscular Hgb Conc 35.1 g/dL (32.0-36.0); Mean Corpuscular Volume 86.7 fL (80.0-100.0); Mean Platelet Volume 8.8 fL (9.4-12.4); Monocytes # (auto) 0.67 K/uL (0.24-0.82); Monocytes % (auto) 12.5 %; Neutrophils # (auto) 3.19 K/uL (1.4-6.5); Neutrophils % (auto) 59.4 %; Platelet Count 234 K/uL (130-400); RDW Coefficient of Variation 12.9 % (11.5-14.5); RDW Standard Deviation 40.5 fL (36.4-46.3); Red Blood Count 4.57 M/uL (4.63-6.08); White Blood Count 5.37 K/ul (4.8-10.8)
[2022-02-18 08:26] LABS: BUN Creatinine Ratio 22.5 (10-20); Creatinine Clr Calc Pharmacy 101.2 ml/min; Est GFR (Non-African American) 94.9 ml/min; Potassium 4.2 mmol/L (3.5-5.1)
[2022-02-18] MEDS: ENOXAPARIN INJ 40 MG/0.4 ML SYR SQ SCH (08:39)
[2022-02-18] MEDS: FLUTICASONE PROPIONATE NA SPR 16 GM BTL SCH (08:40)
[2022-02-18] MEDS: lisinopril 10 MG TAB PO SCH (08:41)
[2022-02-18] MEDS: TAMSULOSIN HCL 0.4 MG CAP PO SCH (08:42)
[2022-02-18] MEDS: VENLAFAXINE HCL XR 37.5 MG CAPXR PO SCH (08:42)
--- NOTE | 2022-02-18 18:04 | Hospitalist Progress Note ---
Date of Service February 18, 2022 Assessment & Plan (1) Sepsis: Plan Per Dr. Rodríguez's notes with addendum: Sepsis secondary to complicated UTI Recent transrectal prostatic biopsy on 02/[address] Bernal Patient afebrile since 02/15. Remains hemodynamically stable Possible postprocedural infection after prostate biopsy, a complication of care Evaluated by urology here-plan to continue broad-spectrum antibiotics (vanco, cefepime) until cultures result. Follow-up with Dr. Bernal as an outpatient upon discharge Urine, blood culture pending-have been negative so far The patient has been feeling a lot better but is still having sweating Will change antibiotics to IV Unasyn to cover colonic pathogens Plan to discharge the patient on oral Augmentin tomorrow 02/18 Urine and blood cultures: Negative Afebrile, feels better overall Discharge to home on Augmentin twice daily x7 days Follow-up with urologist as an outpatient as scheduled Follow-up with PCP in 1 week Hypertension Stable overall Follow-up with PCP Hyperlipidemia Continue statin Hx BPH Continue Flomax Depression Continue venlafaxine Discharge to home plan of care discussed with patient in detail and at length all questions answered he is understanding, agreeable, comfortable with the plan of care Admission and Anticipated Discharge Date Admission Date: February 15, 2022 Subjective Follow-up sepsis, complicated UTI, etc. Seen resting in bed, comfortable, not in distress States he feels much better overall No abdominal pain, nausea vomiting, fevers or chills no chest pain, dyspnea, palpitations, dizziness No other symptoms States he is ready for discharge today as well Review of Systems Review of Systems: all noted and negative except for above Physical Exam Physical Exam: General- oriented x 3, not in distress, speaks in sentences with no effort or accessory muscle use Eyes- anicteric Neck- no JVD Lungs- clear breath sounds BL Heart- normal rate, regular rhythm; no murmurs Abdomen- normal bowel sounds, nondistended, soft, nontender No CVA tenderness Extremities- no pretibial edema, no calf tenderness Neuro- alert, oriented x 3; no gross focal neurologic deficits Skin- warm & dry Results & Data Results & Data ([facility]) Vital Signs (Past 12 Hours) Vital Signs Temp Pulse Resp BP Pulse Ox 02/18/22 09:51 36.8 C 65 18 119/79 94 02/18/22 07:45 36.8 C 65 18 119/79 94 all noted and reviewed including below
--- NOTE | 2022-02-20 16:34 | Discharge Summary ---
Discharge Summary Date of Service February 20, 2022 Notes For Next Care Provider Admitted for sepsis from suspected urinary tract infection after prostate biopsy. Improved with IV Unasyn. Medication Changes From Visit Added Augmentin x7 days Admission HPI Per Admitting Provider History obtained from patient, family, and records. Medical history significant for hypertension, hyperlipidemia, BPH, GERD, urolithiasis. Last confinement January 2021 for hydronephrosis secondary to ureteral obstruction. Patient underwent outpatient TRUS and prostate needle biopsy at [facility] [address] 2 days ago for elevated PSA. Patient prescribed few days of Cipro postprocedure. Post procedure, patient noted urinary hesitancy without hematuria symptoms. Today, patient had muscle aches, nausea, fever at home. No chest pain, no SOB, no diarrhea symptoms. Vancomycin and cefepime administered at the ER for sepsis. 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 Rodríguez's notes with addendum: Sepsis secondary to complicated UTI Recent transrectal prostatic biopsy on 02/[address] Bernal Patient afebrile since 02/15. Remains hemodynamically stable Possible postprocedural infection after prostate biopsy, a complication of care Evaluated by urology here-plan to continue broad-spectrum antibiotics (vanco, cefepime) until cultures result. Follow-up with Dr. Bernal as an outpatient upon discharge Urine, blood culture pending-have been negative so far The patient has been feeling a lot better but is still having sweating Will change antibiotics to IV Unasyn to cover colonic pathogens Plan to discharge the patient on oral Augmentin tomorrow 02/18 Urine and blood cultures: Negative Afebrile, feels better overall Discharge to home on Augmentin twice daily x7 days Follow-up with urologist as an outpatient as scheduled Follow-up with PCP in 1 week Hypertension Stable overall Follow-up with PCP Hyperlipidemia Continue statin Hx BPH Continue Flomax Depression Continue venlafaxine Discharge to home plan of care discussed with patient in detail and at length all questions answered he is understanding, agreeable, comfortable with the plan of care Discharge Exam General- oriented x 3, not in distress, speaks in sentences with no effort or accessory muscle use Eyes- anicteric Neck- no JVD Lungs- clear breath sounds BL Heart- normal rate, regular rhythm; no murmurs Abdomen- normal bowel sounds, nondistended, soft, nontender No CVA tenderness Extremities- no pretibial edema, no calf tenderness Neuro- alert, oriented x 3; no gross focal neurologic deficits Skin- warm & dry Updated Medication List Medication Instructions Recorded Confirmed Type atorvastatin 20 mg tablet 20 mg PO HS 02/16/21 02/16/22 History fluticasone propionate 50 1 spray intranasal QAM 02/16/21 02/16/22 History mcg/actuation nasal spray,suspension omeprazole 20 mg capsule,delayed 20 mg PO QAM PRN Heartburn 02/16/21 02/16/22 History release venlafaxine 37.5 mg 37.5 mg PO QAM 02/16/21 02/16/22 History capsule,extended release 24 hr acetaminophen 325 mg tablet 650 mg PO QID PRN Pain 02/19/21 02/16/22 History lisinopril 30 mg tablet 30 mg PO QAM 03/03/21 02/16/22 History tamsulosin 0.4 mg capsule (Flomax) 0.4 mg PO DAILY #30 caps 03/06/21 02/16/22 Rx amoxicillin 875 mg-potassium 1 tab PO BID #14 tabs 02/18/22 Rx clavulanate 125 mg tablet Hospital Stay Data Consultations 02/15/22 23:03 ED Decision to Admit Stat Diagnostic Imagining Performed 02/15/22 20:35 CT abd pelvis IV con only Urgent FINDINGS: The lung bases are clear. No pneumoperitoneum. No pneumatosis. No suspicious lytic or blastic osseous lesions. Hepatic steatosis. The gallbladder, spleen, adrenal glands, pancreas, and kidneys are unremarkable. No retroperitoneal or pelvic lymphadenopathy. Normal caliber abdominal aorta. The bladder is unremarkable. Small fat-containing bilateral inguinal hernias are noted. Minimal perirectal fat stranding/edema is noted. The prostate gland is mildly enlarged and heterogeneous. This is similar to the prior study. No bowel wall thickening or obstruction. Colonic diverticulosis. No evidence for acute diverticulitis. IMPRESSION: 1. Minimal perirectal edema/fat stranding. This may be due to the recent history of a prostate biopsy. A low-grade proctitis is considered less likely but not entirely excluded. 2. Mildly enlarged and heterogeneous prostate gland, unchanged. 3. No evidence for bowel obstruction. 4. Colonic diverticulosis. No evidence for acute diverticulitis. 5. Hepatic steatosis. ACT 112: Negative or not required by law. Pending Results Patient Have Any Pending Studies at Discharge: No Discharge Instructions Given to Patient (Per Discharging Provider) PLEASE REFER TO YOUR NEW MEDICATION LIST AND FOLLOW INSTRUCTIONS CAREFULLY. YOUR NEW MEDICATIONS INCLUDE: AUGMENTIN- antibiotic for urinary tract infection TAKE A PROBIOTIC X AT LEAST 2 WEEKS. DRINK PLENTY OF WATER DAILY. PLEASE CALL YOUR PRIMARY CARE PHYSICIAN OR RETURN TO THE ER IF WITH WORSENING OF SYMPTOMS, INCLUDING FEVER/CHILLS, NAUSEA/VOMITING, ABDOMINAL PAIN/BACK PAIN, CHANGES WITH URINATION, DIARRHEA. FOLLOW UP WITH PRIMARY CARE PHYSICIAN IN 1 WEEK. FOLLOW UP WITH UROLOGIST SCHEDULED. Total Time Total Time Spent Total Time Spent (In Minutes): >30 minutes
== END 2022-02-18 11:27 | disposition home or self-care (01) | DRG 863 ==
LOC: ED 18:41 → SUATTDRO 23:41 → 3W 23:41